=== PATIENT | male | born 1960 | race African-American/Black ===

== ENCOUNTER 2016-09-05 06:20 | Inpatient (IN) | payer OTHER ==
[~2016-09-05] VITALS: Ht 172.7 cm; Wt 100.2 kg
[2016-09-05] MEDS ORDERED: NALOXONE HCL 0.4 MG/ML AMPUL ONE ×2 (06:25→06:56)
[2016-09-05] MEDS ORDERED: NALOXONE PREFILLED SYRINGE 2 MG/2 ML SYRINGE IV ONE ×2 (06:30→07:00)
[2016-09-05] MEDS ORDERED: IV NS 0.9% 1,000 ML BAG IV ONE (06:30)
--- NOTE | 2016-09-05 06:30 | NUR ---
56 yo male bb ra from home for GLF. pt is alert x 0, pt gowned, placed on cardiac cath rn. SPO2 in the mid 70. MD Duran notified. 16g LAC iv started, blood sample obtained and sent to lab. medicated pt per verbal order MD Duran: 0.4mg Narcan IVP. pt woke up and asked for a blanket. SPO2 normalized to mid 90's. Pt now complains of right knee and right ankle pain, states he had a GLF. Will continue to monitor
[2016-09-05] MEDS ORDERED: IV NS 0.9% 1,000 ML ONE (06:32)
[2016-09-05] MEDS ORDERED: IV SET PRIMARY 1 EA INFUS.SET MC ONE (06:32)
--- NOTE | 2016-09-05 06:40 | NUR ---
Medicated pt as ordered
--- NOTE | 2016-09-05 06:48 | NUR ---
pt transported by radiology to [place] via [facility]
[2016-09-05 07:01] LABS: EOSINOPHILS # (AUTO) 0.2 /CMM (0.0-0.7); EOSINOPHILS % (AUTO) 1.4 % (0.0-6.0); HEMATOCRIT 48 % (39-51); HEMOGLOBIN 16.6 g/dL (13.5-17.5); LYMPHOCYTES # (AUTO) 1.8 /CMM (0.8-4.8); LYMPHOCYTES % (AUTO) 14.3 % (20.0-44.0); MEAN CORPUSCULAR HEMOGLOBIN 36 PG (26.0-33.0); MEAN CORPUSCULAR HGB CONC 34 g/dl (31.0-36.0); MEAN CORPUSCULAR VOLUME 105 fL (80-96); MONOCYTES # (AUTO) 1.7 /CMM (0.1-1.30); MONOCYTES % (AUTO) 13.1 % (2.0-12.0); NEUTROPHILS % (AUTO) 71.2 % (43.0-81.0); PLATELET COUNT (AUTO) 164 /CMM (150-450); RDW COEFFICIENT OF VARIATION 15.1 (11.5-15.0); RED BLOOD CELL COUNT(AUTO) 4.58 MIL/uL (4.5-6.0); WHITE BLOOD COUNT (AUTO) 12.6 K/uL (4.3-11.0)
[2016-09-05 07:03] LABS: CALCIUM, SERUM 9.1 mg/dL (8.5-10.1); POTASSIUM 4.9 mmol/L (3.5-5.1)
--- NOTE | 2016-09-05 07:04 | NUR ---
pt SPO2 dropped, admin 0.4 mg narcan as ordered by md Duran
[2016-09-05 07:07] LABS: INR 1.04 (0.87-1.13); PROTHROMBIN TIME 11.2 SECS (9.5-12.7)
[2016-09-05 07:12] LABS: TROPONIN I 0.081 ng/mL (0.00-0.056)
[2016-09-05] MEDS ORDERED: ASPIRIN 325 MG TABLET ONE (07:24)
[2016-09-05] MEDS ORDERED: ENOXAPARIN SODIUM 80 MG/0.8 ML DISP.SYRIN SQ ONE (07:24)
[2016-09-05] MEDS ORDERED: ASPIRIN EC 325 MG TABLET.DR PO ONE ×2 (07:26→07:30)
[2016-09-05] MEDS ORDERED: ENOXAPARIN SODIUM 60 MG/0.6 ML DISP.SYRIN SQ ONE (07:30)
--- NOTE | 2016-09-05 07:33 | NUR ---
PAGED DR. WEAVER FOR ADMISSION
--- NOTE | 2016-09-05 07:40 | NUR ---
RN INITIAL NOTE PATIENT RECEIVED IN BED. PATIENT IS PRIMARILY TELUGU SPEAKING, NON VERBAL, MOUTHS WORDS. ABLE TO MAKE NEEDS KNOWN. NO S/S OF PAIN OR DISCOMFORT. DENIES PAIN AT THIS TIME. PATIENT IS AFIB ON TELE MONITOR, HEART RATE IN THE 80'S. PATIENT HAS TRACH, PORTEX #8, AC-14, TV-500, [id number]%, PEEP OF 5. SATING WELL. SKIN IS WARM AND DRY TO TOUCH. PATIENT IS ON NPO STATUS BECAUSE JTUBE IS CLOGGED. IV SITE FLUSHED, PATENT. DRESSING C/D/I. SAFETY PRECAUTIONS IMPLEMENTED, BED IN LOCKED, LOW POSITION WITH TWO SIDE RAILS UP. PATIENT RECEIVING HD THIS AM. DAUGHTER AT BEDSIDE. CALL LIGHT WITHIN EASY REACH. WILL CONTINUE TO MONITOR. Addendum: 09/05/16 at 0932 by TAMMY WHALEN RN DOCUMENTED UNDER WRONG PATIENT
--- NOTE | 2016-09-05 08:31 | NUR ---
REPORT GIVEN TO TAMMY LION FOR MARYAM ROOM 111
[2016-09-05 09:00] VITALS: BP 116/64
[2016-09-05] MEDS ORDERED: MAGNESIUM HYDROXIDE 30 ML UDC PO PRN (09:00)
[2016-09-05] MEDS ORDERED: HYDROCODONE/APAP 5/325MG 1 EACH TABLET PO PRN (09:00)
[2016-09-05] MEDS ORDERED: ZOLPIDEM TARTRATE 5 MG TABLET PO PRN (09:00)
[2016-09-05] MEDS ORDERED: Z GUARD REMEDY 2 OZ OINT TP PRN (09:00)
--- NOTE | 2016-09-05 09:00 | NUR ---
RN INITIAL NOTE PATIENT RECEIVED FROM ER, TRANSFERRED VIA GURNEY. PATIENT IS ALERT AND ORIENTED X2. ABLE TO MAKE NEEDS KNOWN. PATIENT STATES HE IS IN PAIN. ON NPO STATUS. MD MADE AWARE. PATIENT IS SINUS RHYTHM ON TELE MONITOR, HEART RATE IN THE 80'S. RESPIRATIONS ARE EVEN AND UNLABORED. SATING WELL ON 3L NASAL CANULA. SKIN IS WARM AND DRY TO TOUCH. IV SITE FLUSHED, PATENT. DRESSING C/D/I. CALL LIGHT WITHIN EASY REACH. WILL CONTINUE TO MONITOR.
[2016-09-05 12:00] VITALS: BP 91/54
[2016-09-05] MEDS: ACETAMINOPHEN 325 MG TABLET PO PRN (13:04)
[2016-09-05 16:00] VITALS: BP 123/79
--- NOTE | 2016-09-05 18:54 | NUR ---
RN CLOSING NOTE ALL MD ORDERS CARRIED OUT. PATIENT KEPT CLEAN AND DRY. SAFETY PRECAUTIONS IN PLACE AT ALL TIMES. WILL GIVE REPORT TO ONCOMING PM RN FOR [place].
[2016-09-05 20:00] VITALS: BP 108/64
--- NOTE | 2016-09-05 22:00 | NUR ---
melanie rn notes spoke to dr coker regarding home meds and pain medication with order made and carried out.
[2016-09-05] MEDS ORDERED: HYDROMORPHONE HCL 2 MG TABLET ONE (22:22)
[2016-09-05] MEDS: MAG HYDROX/AL HYDROX/SIMETH 30 ML UDC PO PRN (22:23)
--- NOTE | 2016-09-05 22:23 | NUR ---
MARYAM RN NOTES: MAALOX WAS ADMINISTERED PER PT'S REQUEST OF FEELING DYSPEPSIA. WILL CONTINUE TO MONITOR PT.
[2016-09-05] MEDS: HYDROMORPHONE HCL 2 MG TABLET PO PRN (22:29)
--- NOTE | 2016-09-05 22:29 | NUR ---
MARYAM NOTES: PT COMPLAINED OF GENERALIZED 10/10 PAIN. PT WAS ADMINISTERED DILAUDID 4MG PO. WILL CONTINUE TO MONITOR PT.
[2016-09-05] MEDS ORDERED: TRAZODONE 50 MG TABLET ONE (23:26)
[2016-09-05] MEDS: TRAZODONE 50 MG TABLET PO SCH (23:32)
--- NOTE | 2016-09-05 23:32 | NUR ---
td rn notes received pts on bed awake alert and responsive , on tele sr on the monitor , no sob no distress noted c/o of generalized pain , paged for dr sheela chris concrete float maker for order , hob elevated for aspiration precaution , v/s stable afebrile ,all needs attended too call light within reach all due meds given as order , bed on locked position , safety precaution provided , kept pts comfortable in bed, on nc at 3 liters sating 92% encouraged pts not to take out the nasal canula , will continue to monitor pts.
[2016-09-06] VITALS: BP 112/73
--- NOTE | 2016-09-06 01:38 | NUR ---
MARYAM NOTES: NO REDNESS NOTED ON RIGHT ARM WHERE PEN MARKINGS WERE NOTED. WILL CONTINUE TO MONITOR THROUGHOUT SHIFT.
[2016-09-06] MEDS ORDERED: ALBUTEROL FS 2.5 MG/3 ML VIAL.NEB ONE (01:41)
[2016-09-06] MEDS ORDERED: IPRATROPIUM NEB FS 0.5 MG/2.5 ML AMPUL.NEB ONE (01:41)
[2016-09-06] MEDS: ALBUTEROL FS 2.5 MG/3 ML VIAL.NEB NEB SCH ×4 (01:48→20:04)
[2016-09-06] MEDS: IPRATROPIUM NEB FS 0.5 MG/2.5 ML AMPUL.NEB NEB SCH ×4 (01:48→20:04)
[2016-09-06 04:00] VITALS: BP 104/59
[2016-09-06] MEDS: ACETAMINOPHEN 325 MG TABLET PO PRN (05:39)
--- NOTE | 2016-09-06 05:39 | NUR ---
MARYAM RN NOTE: TYLENOL 650MG PO WAS ADMINISTERED. WILL CONTINUE TO MONITOR PT.
[2016-09-06] MEDS ORDERED: HYDROMORPHONE HCL 2 MG TABLET ONE (06:09)
[2016-09-06] MEDS: HYDROMORPHONE HCL 2 MG TABLET PO PRN ×4 (06:14→21:45)
--- NOTE | 2016-09-06 06:14 | NUR ---
MARYAM RN NOTES: PT COMPLAINED OF 10/10 GENERALIZED PAIN. PT WAS ADMINISTERED DILAUDID 4MG PO. WILL CONTINUE TO MONITOR PT.
--- NOTE | 2016-09-06 06:21 | NUR ---
MARYAM RN NOTES PTS ON BED AWAKE AND RESPONSIVE , V/S STABLE AFEBRILE , REMAINS ON NC AT 3LITERS SATING 94% ALL NEEDS ATTENDED TOO CALL LIGHT WITHIN REACH , WILL ENDORSE PTS TO RN DAY SHIFT FOR CONTINUITY OF CARE.NO SIGNIFICANT CHANGE NOTED AT TIS TIME.
--- NOTE | 2016-09-06 07:49 | NUR ---
RN MARYAM; ASSESSMENT RECEIVED PT AWAKE AND ORIENTED X4. PT STATES THAT RIGHT SIDE OF BODY IS SORE S/P FALL. PT IS CONCERN REGARDING HOME MEDICATIONS, DISCUSSED THAT MED HAVE BEEN RECONCILE AND AWAITING VERIFICATION WITH PHARMACY. PT VERBALIZES UNDERSTANDING. PT IS CONTINENT OF URINE. URINAL WITH IN REACH, CALL LIGHT WITH IN REACH, BED SET AT LOW POSITION WITH BED ALARM SET. WILL CONTINUE WITH POC.
[2016-09-06 07:52] LABS: BASOPHILS # (AUTO) 0.1 /CMM (0.0-0.2); BASOPHILS % (AUTO) 0.7 % (0.0-2.0); EOSINOPHILS # (AUTO) 0.2 /CMM (0.0-0.7); HEMATOCRIT 41 % (39-51); HEMOGLOBIN 14.2 g/dL (13.5-17.5); LYMPHOCYTES # (AUTO) 1.7 /CMM (0.8-4.8); LYMPHOCYTES % (AUTO) 21.2 % (20.0-44.0); MEAN CORPUSCULAR HEMOGLOBIN 36 PG (26.0-33.0); MEAN CORPUSCULAR HGB CONC 34 g/dl (31.0-36.0); MEAN CORPUSCULAR VOLUME 105 fL (80-96); MONOCYTES # (AUTO) 1.1 /CMM (0.1-1.30); NEUTROPHILS % (AUTO) 61.1 % (43.0-81.0); PLATELET COUNT (AUTO) 152 /CMM (150-450); RDW COEFFICIENT OF VARIATION 14.7 (11.5-15.0); RED BLOOD CELL COUNT(AUTO) 3.96 MIL/uL (4.5-6.0); WHITE BLOOD COUNT (AUTO) 8.1 K/uL (4.3-11.0)
[2016-09-06 08:00] VITALS: BP_SYST 94; BP_SYST 95; BP_DIAS 55
[2016-09-06 08:11] LABS: CALCIUM, SERUM 8.3 mg/dL (8.5-10.1); CREATININE 0.8 mg/dL (0.6-1.3); PHOSPHORUS 2.8 mg/dL (2.5-4.9); POTASSIUM 3.7 mmol/L (3.5-5.1)
[2016-09-06] MEDS ORDERED: oxyCODONE HCL SR 10MG TAB.SR.12H PO PRN (09:00)
[2016-09-06] MEDS ORDERED: BACLOFEN (10 MG) 10 MG TABLET PO SCH (09:00)
[2016-09-06] MEDS: HYDROCHLOROTHIAZIDE 25 MG TABLET PO SCH (09:00)
[2016-09-06 09:10] LABS: INR 0.95 (0.87-1.13); PROTHROMBIN TIME 10.1 SECS (9.5-12.7)
[2016-09-06] MEDS: MAG HYDROX/AL HYDROX/SIMETH 30 ML UDC PO PRN (09:18)
[2016-09-06] MEDS: ASPIRIN 81 MG TAB.CHEW PO SCH (09:20)
[2016-09-06] MEDS: CELECOXIB 100 MG CAPSULE PO SCH ×2 (09:20→18:25)
[2016-09-06] MEDS: GABAPENTIN 100 MG CAPSULE PO SCH ×2 (09:20→18:24)
[2016-09-06 12:00] VITALS: BP 104/61
[2016-09-06] MEDS ORDERED: CLON2TAB4 PO (14:22)
[2016-09-06] MEDS ORDERED: OMEP20TA20 PO (14:22)
[2016-09-06] MEDS ORDERED: TRAZ-147 PO (14:22)
[2016-09-06] MEDS ORDERED: LORA1TAB82 PO (14:22)
[2016-09-06] MEDS ORDERED: OXYC10TA72 PO (14:22)
[2016-09-06] MEDS ORDERED: DICL30AD3 PO (14:22)
[2016-09-06] MEDS ORDERED: GABA600T PO (14:22)
[2016-09-06] MEDS ORDERED: LIDO30AD10 TP (14:22)
[2016-09-06] MEDS ORDERED: ZOLP5TAB2 PO (14:22)
[2016-09-06] MEDS ORDERED: MAG30ORA PO (14:22)
[2016-09-06] MEDS ORDERED: CELE200C PO (14:22)
[2016-09-06] MEDS ORDERED: ALBU1.257 NEB (14:22)
[2016-09-06] MEDS ORDERED: BUDE10.2 INH (14:22)
[2016-09-06] MEDS ORDERED: RIVA10TA PO (14:22)
[2016-09-06] MEDS ORDERED: BUDE180A INH (14:22)
[2016-09-06] MEDS ORDERED: MOME13HF2 INH (14:22)
[2016-09-06] MEDS ORDERED: HYDR25TA4 PO (14:22)
[2016-09-06] MEDS ORDERED: IPRA12.9 INH (14:22)
[2016-09-06] MEDS ORDERED: BACL20TA PO (14:22)
[2016-09-06] MEDS ORDERED: DOCU-25 PO (14:22)
[2016-09-06 16:00] VITALS: BP 105/66
--- NOTE | 2016-09-06 16:22 | NUR ---
MANAGER HEAVY EQUIPMENT; PT C/O UNABLE TO URINATE. PT HAD SMALL AMOUNT OF URINE THIS AM BUT UNABLE TO URINATE. PT STATES THAT HE SELF CATH AT HOME AND THAT OUR CATH ARE TO LARGE AND IS REQUESTING TO BRING HIS SUPPLY FROM HOME. WILL NOTIFY DR. WEAVER.
[2016-09-06] MEDS ORDERED: ALBUTEROL FS 2.5 MG/3 ML VIAL.NEB NEB PRN (17:00)
[2016-09-06] MEDS ORDERED: ZOLPIDEM TARTRATE 5 MG TABLET PO PRN (17:00)
[2016-09-06] MEDS ORDERED: Medication Not On Formulary EA (Budesonide (Pulmicort Flexhaler) 2 PUFF) INH SCH (17:00)
[2016-09-06] MEDS ORDERED: Medication Not On Formulary EA (Budesonide/Formoterol Fumarate (Symbicort 160-4.5 Mcg In INH SCH (17:00)
[2016-09-06] MEDS ORDERED: IPRATROPIUM NEB FS 0.5 MG/2.5 ML AMPUL.NEB NEB PRN (17:00)
[2016-09-06] MEDS ORDERED: MAG HYDROX/AL HYDROX/SIMETH 30 ML UDC PO SCH (17:00)
[2016-09-06] MEDS ORDERED: LIDOCAINE 2% JEL UROJET 10 ML MM ONE (18:00)
[2016-09-06] MEDS ORDERED: Medication Not On Formulary EA (Trazodone Hcl 1 TAB) PO SCH (18:00)
--- NOTE | 2016-09-06 18:21 | NUR ---
RN MARYAM; PT WAS NOW ABLE TO URINATE. PT STATES THAT FEELS RELIEF AND NO MORE FULLNESS FEELING IN HIS BLADDER. PT REFUSES CATHETER AT THIS TIME, BUT IF NEEDED LATER AGREES FOR CATH.
[2016-09-06] MEDS: RIVAROXABAN 10 MG TABLET PO SCH (18:25)
[2016-09-06] MEDS: oxyCODONE HCL SR 10MG TAB.SR.12H PO SCH (18:26)
--- NOTE | 2016-09-06 19:20 | NUR ---
BELL NECK HAMMERER INITIAL NOTES RECEIVED PT IN NO ACUTE DISTRESS AND DRY, CLEAN, AND COMFORTABLE IN BED. PT IS A/OX3 AND ABLE TO MAKE NEEDS KNOWN. PT IS ON 3L 02 VIA NC. 02 SATURATION IS AT 99% WITH ADEQUATE CHEST RISE/FALL. PT IS ON THE TELE WITH SR. PT STATED THAT HE IS IN PAIN 10/10 IN WHICH DILAUDID WAS ADMINISTERED FOR THE PAIN. COMFORT AND SAFETY MEASURES PLACED AND ENSURED CALL LIGHT WAS AT BEDSIDE WITHIN REACH. WILL CONTINUE TO MONITOR THE PT FOR ANY CHANGES IN CONDITION.
--- NOTE | 2016-09-06 19:33 | NUR ---
ALL [facility] ONCE CLEARED FOR PT SAFETY
[2016-09-06 19:42] LABS: APPEARANCE,URINE CLEAR (CLEAR); BILIRUBIN,URINE 1+ (NEGATIVE); BLOOD, URINE NEGATIVE Ery/uL (NEGATIVE); COLOR,URINE AMBER (YELLOW); KETONES,URINE 1+ (NEGATIVE); LEUKOCYTE ESTERASE ,URINE NEGATIVE (NEGATIVE); NITRITE, URINE NEGATIVE (NEGATIVE); PROTEIN,URINE NEGATIVE (NEGATIVE); UGLUCOSE NEGATIVE (NEGATIVE)
[2016-09-06 19:50] LABS: RBC,URINE NONE SEEN /HPF (0-2); WBC,URINE 0-2 /HPF (0-3)
[2016-09-06 19:51] LABS: BACTERIA,URINE None seen /HPF (None Seen); SQUAMOUS EPITHELIAL CELL,UR Rare /HPF (None Seen)
[2016-09-06 20:00] VITALS: BP 102/62
[2016-09-06] MEDS: TRAZODONE 50 MG TABLET PO SCH (22:38)
[2016-09-06] MEDS: clonazePAM 1 MG TABLET PO PRN (22:42)
[2016-09-07] VITALS (7 sets, daily range): BP systolic 91–138; BP diastolic 53–76
[2016-09-07] MEDS: IPRATROPIUM NEB FS 0.5 MG/2.5 ML AMPUL.NEB NEB SCH ×4 (01:56→20:01)
[2016-09-07] MEDS: ALBUTEROL FS 2.5 MG/3 ML VIAL.NEB NEB SCH ×4 (01:56→20:01)
[2016-09-07] MEDS: HYDROMORPHONE HCL 2 MG TABLET PO PRN ×3 (06:22→20:08)
--- NOTE | 2016-09-07 06:41 | NUR ---
MARYAM RN CLOSING NOTES NO SIGNIFICANT CHANGES OVERNIGHT. ALL NEEDS ANTICIPATED AND MET. PATIENT DENIES SOB. ON AND OFF OXYGEN PER PATIENT PREFERENCE. C/O NOT BEING ABLE TO SLEEP WELL DUE TO ROOMMATE. PAIN MANAGED NEEDED. SKIN WARM AND DRY TO TOUCH. PER PATIENT MINIMAL URINE OUTPUT, STATED HE FEELS THE NEED TO URINATE, BUT NOTHING COMES OUT. STATES HE WILL DRINK MORE WATER AND ATTEMPT TO PEE. DOES NOT WANT TO BE CATHETERIZED AT THIS TIME, AND STATES HE WILL DISCUSS HIS CONCERNS WITH THE DOCTOR. KEPT CLEAN AND DRY. TURNED AND REPOSITIONED Q2 AND PRN. SIDE RAILS UP AND LOCKED. BED KEPT AT LOWEST POSITION. CALL LIGHT KEPT WITHIN EASY REACH. WILL ENDORSE CONTINUITY OF CARE TO AM NURSE.
--- NOTE | 2016-09-07 07:40 | NUR ---
OPERATIONS RESEARCH SCIENTIST INITIAL NOTES RECEIVED PT IN NO ACUTE DISTRESS AND DRY, CLEAN, AND COMFORTABLE IN BED. PT IS A/OX3 AND ABLE TO MAKE NEEDS KNOWN. PT IS ON 3L 02 VIA NC. 02 SATURATION IS AT 98% WITH ADEQUATE CHEST RISE/FALL. PT IS ON THE TELE WITH SR. PT STATED THAT HE IS IN PAIN 8/10 IN WHICH DILAUDID WAS ADMINISTERED FOR THE PAIN 1HR AGO. COMFORT AND SAFETY MEASURES PLACED AND ENSURED CALL LIGHT WAS AT BEDSIDE WITHIN REACH. WILL CONTINUE TO MONITOR THE PT FOR ANY CHANGES IN CONDITION.
[2016-09-07] MEDS: CELECOXIB 100 MG CAPSULE PO SCH ×2 (08:47→16:43)
[2016-09-07] MEDS: GABAPENTIN 100 MG CAPSULE PO SCH ×2 (08:47→16:42)
[2016-09-07] MEDS: PANTOPRAZOLE 40 MG TABLET.DR PO SCH (08:49)
[2016-09-07] MEDS: DOCUSATE SODIUM 100 MG CAPSULE PO SCH (08:49)
[2016-09-07] MEDS: oxyCODONE HCL SR 10MG TAB.SR.12H PO SCH ×2 (08:49→21:48)
[2016-09-07] MEDS: LORAZEPAM 1 MG TABLET PO SCH (08:49)
[2016-09-07] MEDS: ASPIRIN 81 MG TAB.CHEW PO SCH (08:49)
[2016-09-07] MEDS: HYDROCHLOROTHIAZIDE 25 MG TABLET PO SCH (08:50)
[2016-09-07] MEDS: BACLOFEN (10 MG) 10 MG TABLET PO SCH (08:50)
[2016-09-07] MEDS ORDERED: HYDROCHLOROTHIAZIDE 25 MG TABLET PO SCH (09:00)
[2016-09-07] MEDS ORDERED: CELECOXIB PO SCH (09:00)
[2016-09-07] MEDS ORDERED: RIVAROXABAN 10 MG TABLET PO SCH (09:00)
[2016-09-07] MEDS ORDERED: FLUTICASONE/SALMETEROL DISKUS IH SCH (09:00)
[2016-09-07] MEDS: LIDOCAINE 5% (PATCH) 1 EA PATCH TP SCH (09:01)
[2016-09-07] MEDS: FLUTICASONE/VILANTEROL 1 EACH BLST.W.DEV IH SCH (09:01)
--- NOTE | 2016-09-07 10:06 | NUR ---
RN NOTE PATIENT LEAVING UNIT FOR BILATERAL RIB X-RAY - FOR STATED PAIN LIDOCAINE PATCHES APPLIED TO RIGHT DAVID, HIP, ABDOMINAL AND MEDIAL BACK
--- NOTE | 2016-09-07 12:33 | NUR ---
RN NOTE IT SHOULD BE NOTED THAT THE [PATIENT CONTINUES TO COMPLAIN OF PAIN AT 9-10 ON 0-10 SCALE . PT IS OBSERVED SLEEPING WITHOUT DIFFICULTY OR GRIMACING AND NO OBVIOUS SIGNS OF PAIN. HOWEVER WHEN ASKED THE PATIENT STATES HE HAS EXTREME PAIN AND DISCOMFORT. PRN MEDICATION ADMINISTERED PER PATIENTS REQUEST
--- NOTE | 2016-09-07 13:29 | NUR ---
RN NOTE MD GUADARRAMA UPDATED ON PATIENTS CONDITION, ALSO INFORMED ABOUT PATIETN CHEWING PERSONAL NICOTINE GUM LIKE CANDY THROUGH OUT THE DAY. MD NOT ALARMED STATING HE WAS AWARE OF THIS. NURSING STAFF WILL CONTINUE TO MONITOR .
--- NOTE | 2016-09-07 14:40 | NUR ---
PATIENT COMFORTABLY RESTING ALL NEEDS ATTENDED TO, NO SOB OR DISTRESS NOTED AT THIS TIME NURSING STAFF WILL CONTINUE TO MONITOR.
--- NOTE | 2016-09-07 16:39 | NUR ---
RN NOTE PATIENT OFFERED BED BATH , PATIENT REFUSED AT THIS TIME NURSING STAFF WILL CONTINUE TO FOLLOW
[2016-09-07] MEDS: RIVAROXABAN 10 MG TABLET PO SCH (16:49)
--- NOTE | 2016-09-07 18:11 | NUR ---
RN CLOSING NOTES NO SIGNIFICANT CHANGES THROUGHOUT THE DAY . ALL NEEDS ANTICIPATED AND MET. PATIENT DENIES SOB. ON 2L OXYGEN CONTINUOUSLY DUE DECREASE IN 02 SATS. PT EXTREMELY SLEEPY THROUGHOUT THE DAY C/O NOT BEING ABLE TO SLEEP LAST NIGHT DUE TO ROOMMATE. PAIN MANAGED NEEDED. SKIN WARM AND DRY TO TOUCH. PER PATIENT MINIMAL URINE OUTPUT, HOWEVER PATIENT URINATED 600 CC DURING DAYSHIFT.HOWEVER PATIENT DISCUSSED THESE ISSUES WITH THE MD , NO CHANGES IN PLAN OF CARE. PT KEPT CLEAN AND DRY. TURNED AND REPOSITIONED Q2 AND PRN. SIDE RAILS UP AND LOCKED. BED KEPT AT LOWEST POSITION. CALL LIGHT KEPT WITHIN EASY REACH. WILL ENDORSE CONTINUITY OF CARE TONIGHT SHIFT NURSE.
--- NOTE | 2016-09-07 19:30 | NUR ---
RN OPENING NOTES RECEIVED REPORT FROM VINH LION. PATIENT ASLEEP IN BED, RESPONSIVE TO VERBAL AND TACTILE STIMULI. A/A/O X3. NO RESPIRATORY DISTRESS NOTED, BREATHING EVEN AND UNLABORED. LUNG SOUNDS CLEAR, ON O2 @ 3LPM VIA NC. ON TELE SINUS RHYTHM IN THE 70S. BOWEL SOUNDS PRESENT IN ALL QUADRANTS, USES URINAL. LEFT AC IV #16 CDI. BED LOCKED AND IN LOWEST POSITION, SIDE RAILS UP, CALL LIGHT WITHIN REACH. WILL CONTINUE TO MONITOR.
[2016-09-07] MEDS: TRAZODONE 50 MG TABLET PO SCH (21:49)
[2016-09-08] VITALS: BP 105/72
[2016-09-08] MEDS: IPRATROPIUM NEB FS 0.5 MG/2.5 ML AMPUL.NEB NEB SCH ×4 (01:03→20:12)
[2016-09-08] MEDS: ALBUTEROL FS 2.5 MG/3 ML VIAL.NEB NEB SCH ×4 (01:03→20:12)
[2016-09-08 04:00] VITALS: BP 119/78
[2016-09-08] MEDS: HYDROMORPHONE HCL 2 MG TABLET PO PRN ×2 (04:16→15:30)
[2016-09-08] MEDS: MAG HYDROX/AL HYDROX/SIMETH 30 ML UDC PO PRN (07:28)
--- NOTE | 2016-09-08 07:57 | NUR ---
MARYAM RN NOTE PATIENT IN BED .ALL NEEDS ATTENDED C\O ABDOMINAL DISCOMFORT, MAALOX GIVEN ORDERED, ON 3L NC SAT 97%, ON TELE MONITOR SR , BED IN LOWEST AND LOCKED POSITION, LT AC HL INTACT NO S\S INFECTION NOTED , PLAN OF CARE DISCUSSED WITH PATIENT , HAVING RT TX , WILL CONT TO MONITOR CLOSELY
[2016-09-08 08:00] VITALS: BP 131/89
[2016-09-08] MEDS: LIDOCAINE 5% (PATCH) 1 EA PATCH TP SCH (08:06)
[2016-09-08] MEDS: DOCUSATE SODIUM 100 MG CAPSULE PO SCH (08:12)
[2016-09-08] MEDS: CELECOXIB 100 MG CAPSULE PO SCH ×2 (08:12→16:19)
[2016-09-08] MEDS: HYDROCHLOROTHIAZIDE 25 MG TABLET PO SCH (08:13)
[2016-09-08] MEDS: BACLOFEN (10 MG) 10 MG TABLET PO SCH (08:15)
[2016-09-08] MEDS: PANTOPRAZOLE 40 MG TABLET.DR PO SCH (08:16)
[2016-09-08] MEDS: ASPIRIN 81 MG TAB.CHEW PO SCH (08:16)
[2016-09-08] MEDS: GABAPENTIN 100 MG CAPSULE PO SCH ×2 (08:16→16:22)
[2016-09-08] MEDS: FLUTICASONE/VILANTEROL 1 EACH BLST.W.DEV IH SCH (08:18)
[2016-09-08] MEDS: oxyCODONE HCL SR 10MG TAB.SR.12H PO SCH ×2 (08:23→21:14)
[2016-09-08] MEDS: LORAZEPAM 1 MG TABLET PO SCH (08:23)
--- NOTE | 2016-09-08 10:36 | NUR ---
MARYAM RN NOTE NEW HL ON LT AC LA NENA 24 AND LT FA LA NENA 22 INSERTED WITH GOOD BLOOD RETURN , ASSISTED TO BR, ABLE TO URINATE 100 ML OF YELLOW COLOR URINE, KEEP CLEAN DRY
[2016-09-08 12:00] VITALS: BP 102/62
--- NOTE | 2016-09-08 12:12 | NUR ---
MARYAM RN NOTE PER DR WEAVER SIZE WORKER NO PICC LINE PATIENT REQUESTED AND AWARE THAT EARLIER C\O ABDOMINAL DISCOMFORT ,MYLANTA PO GIVEN , PER DR WEAVER PATIENT ON XARELTO, NO NEED DVT PUMPS ALSO NOTIFIED THAT EARLIER C\O ITS HARD TO VOID, ON BLADER SCANNER SHOWS 160 ML BUT LATTER ABLE TO URINATE IN BR , VOIDED WELL
--- NOTE | 2016-09-08 14:04 | NUR ---
MARYAM RN NOTE ASSISTED TO BR, ABLE TO URINATE WELL ,NOT IN ACUTE DISTRESS ,KEEP CLEAN DRY
[2016-09-08] MEDS: ONDANSETRON HCL/PF 4 MG/2 ML VIAL IVP PRN ×2 (15:19→23:45)
--- NOTE | 2016-09-08 15:34 | NUR ---
MARYAM RN NOTE C\ PAIN IN BODY 7\10 DILAUDID 4 MG PO GIVEN ORDERED, BP 109/55 SA 98%, WILL MONITOR CLOSELY
[2016-09-08 16:00] VITALS: BP 101/58
[2016-09-08] MEDS: RIVAROXABAN 10 MG TABLET PO SCH (16:20)
--- NOTE | 2016-09-08 17:14 | NUR ---
MARYAM RN NOTE ASSISTED TO BR , ABLE TO URINATE WELL , KEEP CLEAN DRY
--- NOTE | 2016-09-08 18:19 | NUR ---
MARYAM RN NOTE ALL NEEDS ATTENDED ,HAVING DINNER , ABLE TO ETA SELF ,CALL LIGHT WITHIN REACH , NOT IN ACUTE DISTRESS .NO SOB NOTED , BED I LOWEST AND LOCKED POSITION , WILL CONT TO MONITOR CLOSELY
[2016-09-08 20:00] VITALS: BP 106/76
[2016-09-08] MEDS: TRAZODONE 50 MG TABLET PO SCH (21:14)
[2016-09-08] MEDS ORDERED: IV SET PRIMARY PUMP SET 1 EA INFUS.SET MC ONE (22:12)
--- NOTE | 2016-09-08 23:14 | NUR ---
RN:TD: PT EXTREMELY RESISTANT TO WAITING FOR ASSISTANCE DESPITE EDUCATION REGARDING FALL RISK AND PREVIOUS HX OF MULTIPLE FALL. BED ALARM PLACED ON AND CALL LIGHT IN REACH. PT INSTRUCTED TO CALL BEFORE HE NEEDS TO USE THE RESTROOM TO AVOID ANY INJURY. PT CONTINUES TO BE VERY NON-COMPLIANT. SAFETY PRECAUTIONS IN PLACE.
--- NOTE | 2016-09-08 23:55 | NUR ---
RN:TD: PT REQUESTED KLONOPIN FOR SLEEP ORDERED. AFTER OBTAINING MEDICATION FROM WILLIAM PT WAS FOUND TO BE VOMITING SCANT AMOUNT OF OLD FOOD, DUE TO EXCESSIVELY CHEWING NICORETTE GUM. PT ASKED TO STOP EATING SO MUCH GUM IT IS MAKING HIM THROW UP. WILL WAIT 30 MINUTES TO ENSURE PT DOES NOT THROW UP MEDICATION BEFORE ADMINISTERING KLONOPIN. ASPIRATION PRECAUTIONS IN PLACE. ZOFRAN GIVEN PER MD ORDERS.
[2016-09-09] VITALS: BP 115/73
--- NOTE | 2016-09-09 01:18 | NUR ---
rn:td: pt asleep, Abbi returned in the pyxis as pt never took medication due to n/v. tomás charge nurse witnessed return, medication placed in return bin with paperwork. will continue to monitor closely.
[2016-09-09] MEDS: IPRATROPIUM NEB FS 0.5 MG/2.5 ML AMPUL.NEB NEB SCH ×4 (01:30→20:06)
[2016-09-09] MEDS: ALBUTEROL FS 2.5 MG/3 ML VIAL.NEB NEB SCH ×4 (01:30→20:06)
[2016-09-09] MEDS: HYDROMORPHONE HCL 2 MG TABLET PO PRN ×2 (03:21→17:05)
--- NOTE | 2016-09-09 03:23 | NUR ---
RN:TD: PT REQUESTING TO AMBULATE TO BATHROOM BUT SPACE CONTROL SUPERVISOR UNAVAILABLE. PT GAIT TOO UNSTABLE TO ASSIST TO THE BATHROOM ALONE. OFFERED PT URINAL. WHEN ATTEMPTING TO HELP PATIENT HE BECAME DEFENSIVE AND AGGRESSIVE. WHEN TRYING TO FURTHER ASSIST PATIENT HE BEGAN USING INAPPROPRIATE LANGUAGE. PT STATING HE HAD PAIN, PT MEDICATED WITH DILAUDID PER MD ORDERS. PT CONTINUES TO BE VERY NONCOMPLIANT. ATTEMPTED TO ACCOMMODATE ALL PATIENT NEEDS. PT CONTINUES TO CONSUME LARGE AMOUNTS OF NICOTINE GUM DESPITE EDUCATION.
[2016-09-09 04:00] VITALS: BP 126/70
--- NOTE | 2016-09-09 05:53 | NUR ---
RN;TD: PT FALLING ASLEEP WHILE USING URINAL, ATTEMPTED TO OFFER ASSISTANCE BUT PATIENT DECLINED. PROVIDED PT PRIVACY, WILL REASSESS.
--- NOTE | 2016-09-09 06:05 | NUR ---
RN:TD: PT DEMANDING THAT DUST SAMPLER COME TO ASSIST PATIENT TO THE BATHROOM. ALL DUST SAMPLER UNAVAILABLE AT THIS MOMENT, PT OFFERED URINAL BUT DECLINED. PT BECOMING AGGRESSIVE AND ATTEMPTING TO GET OUT OF BED WITH UNSTEADY GAIT. PT REMAINS NONCOMPLIANT AND STATING HE IS IN TOO MUCH PAIN. DUST SAMPLER CAME TO BEDSIDE TO ASSIST PATIENT TO RESTROOM. Z-OLI APPLIED TO PATIENTS BUTTOCKS PER PT REQUEST. ATTEMPTED TO ACCOMMODATE ALL PATIENT NEEDS.
[2016-09-09 06:58] LABS: BASOPHILS % (AUTO) 0.2 % (0.0-2.0); EOSINOPHILS # (AUTO) 0.4 /CMM (0.0-0.7); EOSINOPHILS % (AUTO) 5.9 % (0.0-6.0); HEMATOCRIT 46 % (39-51); HEMOGLOBIN 15.6 g/dL (13.5-17.5); LYMPHOCYTES # (AUTO) 1.5 /CMM (0.8-4.8); LYMPHOCYTES % (AUTO) 20.4 % (20.0-44.0); MEAN CORPUSCULAR HEMOGLOBIN 36 PG (26.0-33.0); MEAN CORPUSCULAR HGB CONC 34 g/dl (31.0-36.0); MEAN CORPUSCULAR VOLUME 105 fL (80-96); MONOCYTES # (AUTO) 0.9 /CMM (0.1-1.30); MONOCYTES % (AUTO) 11.7 % (2.0-12.0); NEUTROPHILS # (AUTO) 4.6 /CMM (1.8-8.9); NEUTROPHILS % (AUTO) 61.8 % (43.0-81.0); PLATELET COUNT (AUTO) 181 /CMM (150-450); RDW COEFFICIENT OF VARIATION 14.9 (11.5-15.0); RED BLOOD CELL COUNT(AUTO) 4.33 MIL/uL (4.5-6.0); WHITE BLOOD COUNT (AUTO) 7.4 K/uL (4.3-11.0)
--- NOTE | 2016-09-09 07:00 | NUR ---
RN NOTE RECEIVED PT ON BED , A/Ox3, RESPIRATION EVEN AND UNLABORED , O2 O2 3L N/C , NO SOB NOTED ,ON TELE SR , LEFT FA IV SITE CDI, SR UP x3, BED LOCKED AND IN LOWEST POSITION , BED ALARM ON FOR PT SAFETY , ADVISED PT TO CALL PRN FOR ASSIST TO BE OUT OF BED , CONTINUE TO MONITOR PT CLOSELY AND NOTIFY MD FOR ANY SIGNIFICANT CHANGES.
[2016-09-09 07:27] LABS: CALCIUM, SERUM 9.3 mg/dL (8.5-10.1); CREATININE 0.8 mg/dL (0.6-1.3)
[2016-09-09 08:00] VITALS: BP 103/70
[2016-09-09] MEDS: PANTOPRAZOLE 40 MG TABLET.DR PO SCH (08:01)
[2016-09-09] MEDS: DOCUSATE SODIUM 100 MG CAPSULE PO SCH (08:01)
[2016-09-09] MEDS: HYDROCHLOROTHIAZIDE 25 MG TABLET PO SCH (08:01)
[2016-09-09] MEDS: ASPIRIN 81 MG TAB.CHEW PO SCH (08:02)
[2016-09-09] MEDS: LORAZEPAM 1 MG TABLET PO SCH (08:02)
[2016-09-09] MEDS: oxyCODONE HCL SR 10MG TAB.SR.12H PO SCH ×2 (08:02→21:16)
[2016-09-09] MEDS: BACLOFEN (10 MG) 10 MG TABLET PO SCH (08:02)
[2016-09-09] MEDS: GABAPENTIN 100 MG CAPSULE PO SCH ×2 (08:02→17:00)
[2016-09-09] MEDS: CELECOXIB 100 MG CAPSULE PO SCH ×2 (08:02→17:00)
[2016-09-09] MEDS: Z GUARD REMEDY 2 OZ OINT TP SCH (08:04)
[2016-09-09] MEDS: FLUTICASONE/VILANTEROL 1 EACH BLST.W.DEV IH SCH (08:05)
[2016-09-09] MEDS: LIDOCAINE 5% (PATCH) 1 EA PATCH TP SCH (08:05)
[2016-09-09] MEDS: ONDANSETRON HCL/PF 4 MG/2 ML VIAL IVP PRN ×2 (10:12→21:25)
[2016-09-09 12:00] VITALS: BP 117/83
[2016-09-09 16:00] VITALS: BP 105/72
--- NOTE | 2016-09-09 16:08 | NUR ---
RN NOTES PT C/O DISCOMFORT AND UNABLE TO EMPTY BLADDER COMPLETELY , PT VOIDED 100CC , BLADDER SCAN SHOWED 275, AND IN AND OUT CATH DONE PER DR WEAVER ORDER ,300 CC URINE OBTAINED .DR WEAVER NOTIFIED .
[2016-09-09] MEDS: RIVAROXABAN 10 MG TABLET PO SCH (17:00)
--- NOTE | 2016-09-09 18:19 | NUR ---
RN NOTES PT STABLE , DENIES ANY DISTRESS AT THIS TIME, MEDICATED PER MD ORDER , OUT OF BED TO BR WITH WALKER , NO SIGNIFICANT CHANGES NOTED ON THIS SHIFT .
--- NOTE | 2016-09-09 19:30 | NUR ---
KILN OPERATOR HELPER INITIAL NOTE: PT RECEIVED IN NO ACUTE DISTRESS. PT IS A/O X3 IN A DEMANDING MOOD WITH R SIDED WEAKNESS. PT IS SR ON TELE WITH A RATE OF 79 BPM. PT IS ABLE TO G TO THE BATHROOM WITH ASSISTANCE FROM STAFF. PT IS ON A REGULAR DIET TOLERATED. PT HAS A MCKENZIE 24 G THAT IS CLEAN DRY AND INTACT THAT WAS BOTH LUMENS WERE FLUSHED TO CHECK PATENCY. PT COMPLAINED OF PAIN 10/10 UPON ASSESSMENT BUT PAIN MEDICATION WAS NOT ABLE TO BE GIVEN UNTIL 2099. PT IS ON 2LPM OF 02 VIA NC THAT IS BEING TOLERATED WELL. NO URINE OR BM NOTED. BED IN LOW POSITION WITH RAILS UP X2. CALL LIGHT WITHIN REACH AND ALL SAFETY/COMFORT MEASURES ENSURED. WILL CONTINUE TO MONITOR THE PT FOR ANY CHANGES.
[2016-09-09 20:00] VITALS: BP 124/77
[2016-09-09] MEDS: clonazePAM 1 MG TABLET PO PRN (21:15)
[2016-09-09] MEDS: TRAZODONE 50 MG TABLET PO SCH (21:22)
[2016-09-10] VITALS: BP_SYST 124; BP_SYST 94; BP_DIAS 59; BP_DIAS 77
[2016-09-10] MEDS: ALBUTEROL FS 2.5 MG/3 ML VIAL.NEB NEB SCH ×3 (02:05→13:19)
[2016-09-10] MEDS: IPRATROPIUM NEB FS 0.5 MG/2.5 ML AMPUL.NEB NEB SCH ×3 (02:05→13:19)
[2016-09-10] MEDS: HYDROMORPHONE HCL 2 MG TABLET PO PRN ×2 (02:21→12:10)
[2016-09-10 04:00] VITALS: BP 96/47
[2016-09-10 06:51] LABS: BASOPHILS % (AUTO) 0.2 % (0.0-2.0); EOSINOPHILS # (AUTO) 0.5 /CMM (0.0-0.7); EOSINOPHILS % (AUTO) 7.9 % (0.0-6.0); HEMATOCRIT 40 % (39-51); HEMOGLOBIN 13.7 g/dL (13.5-17.5); LYMPHOCYTES # (AUTO) 1.4 /CMM (0.8-4.8); LYMPHOCYTES % (AUTO) 19.8 % (20.0-44.0); MEAN CORPUSCULAR HEMOGLOBIN 36 PG (26.0-33.0); MEAN CORPUSCULAR HGB CONC 35 g/dl (31.0-36.0); MEAN CORPUSCULAR VOLUME 105 fL (80-96); MONOCYTES # (AUTO) 0.9 /CMM (0.1-1.30); MONOCYTES % (AUTO) 13.8 % (2.0-12.0); NEUTROPHILS % (AUTO) 58.3 % (43.0-81.0); PLATELET COUNT (AUTO) 187 /CMM (150-450); RDW COEFFICIENT OF VARIATION 15.2 (11.5-15.0); RED BLOOD CELL COUNT(AUTO) 3.78 MIL/uL (4.5-6.0); WHITE BLOOD COUNT (AUTO) 6.8 K/uL (4.3-11.0)
--- NOTE | 2016-09-10 06:58 | NUR ---
AIRPLANE PILOT PHOTOGRAMMETRY CLOSING NOTE PT REMAINS IN NO ACUTE DISTRESS AT END OF SHIFT. PT DID NOT HAVE ANY SIGNIFICANT CHANGE IN CONDITION. WILL ENDORSE CARE TO AM RN FOR CONTINUITY OF CARE. ALL DUE MEDICATIONS TOLERATED WELL. PT BED IN LOW POSITION WITH X2 RAILS UP IN COMFORTABLE POSITION.
[2016-09-10 07:19] LABS: CALCIUM, SERUM 9.1 mg/dL (8.5-10.1); CREATININE 0.7 mg/dL (0.6-1.3); POTASSIUM 3.6 mmol/L (3.5-5.1)
[2016-09-10 08:00] VITALS: BP 114/69
[2016-09-10] MEDS: GABAPENTIN 100 MG CAPSULE PO SCH ×2 (09:10→17:00)
[2016-09-10] MEDS: ASPIRIN 81 MG TAB.CHEW PO SCH (09:10)
[2016-09-10] MEDS: PANTOPRAZOLE 40 MG TABLET.DR PO SCH (09:10)
[2016-09-10] MEDS: DOCUSATE SODIUM 100 MG CAPSULE PO SCH (09:10)
[2016-09-10] MEDS: CELECOXIB 100 MG CAPSULE PO SCH ×2 (09:12→17:00)
[2016-09-10] MEDS: LIDOCAINE 5% (PATCH) 1 EA PATCH TP SCH (09:13)
[2016-09-10] MEDS: BACLOFEN (10 MG) 10 MG TABLET PO SCH (09:13)
[2016-09-10] MEDS: Z GUARD REMEDY 2 OZ OINT TP SCH (09:14)
[2016-09-10] MEDS: HYDROCHLOROTHIAZIDE 25 MG TABLET PO SCH (09:15)
[2016-09-10] MEDS: oxyCODONE HCL SR 10MG TAB.SR.12H PO SCH (09:19)
[2016-09-10] MEDS: LORAZEPAM 1 MG TABLET PO SCH (09:19)
[2016-09-10] MEDS: FLUTICASONE/VILANTEROL 1 EACH BLST.W.DEV IH SCH (09:26)
[2016-09-10] MEDS: ONDANSETRON HCL/PF 4 MG/2 ML VIAL IVP PRN (09:35)
[2016-09-10 10:36] LABS: EOSINOPHILS % (MANUAL) 5 % (0-4); LYMPHOCYTES % (MANUAL) 11 % (16-48); MONOCYTES % (MANUAL) 8 % (0-11.0); NEUTROPHILS % (MANUAL) 76 (42-76)
[2016-09-10 12:00] VITALS: BP 105/66
[2016-09-10 16:00] VITALS: BP 121/70
--- NOTE | 2016-09-10 16:42 | NUR ---
PATIENT REFUSED TO HAVE PHOTO TAKEN PRIOR TO D/C ,PATIENT RIDE IS WAITING PER PATIENT.
[2016-09-10] MEDS: RIVAROXABAN 10 MG TABLET PO SCH (17:00)
--- NOTE | 2016-09-10 17:00 | NUR ---
RN NOTES PT DISCHARGED HOME WITH HOME HEALTH, TRAVEL MED SURG RN ON CASE, IN STABLE CONDITION, VANESSA IS CAREGIVER, PICKED HIM UP, ON WHEEL CHAIR AND PRIVATE CAR, BELONGINGS GIVEN TO PT, IV REMOVED, ID BAND REMOVED, EXIT CARE DONE, DISCHARGE INSTRUCTIONS PROVIDED TO PT, PT LOBO PAPERS, TEACHING DONE TO PT, VERBALIZED UNDERSTANDING.
== END 2016-09-10 17:31 | disposition home or self-care (01) | DRG 812 ==
LOC: ER 06:22 → TELE-TD 08:37 → TELE1 09-09 11:39 → MEDSG1 09-10 15:06
PROVIDERS: ADMIT Family Medicine; ATTEND Family Medicine
DX: T40.601A Poisoning by unspecified narcotics, accidental (unintentional), initial encounter (principal); J96.20 Acute and chronic respiratory failure, unspecified whether with hypoxia or hypercapnia; I21.4 Non-ST elevation (NSTEMI) myocardial infarction; W01.0XXD Fall on same level from slipping, tripping and stumbling without subsequent striking against object, subsequent encounter; I10 Essential (primary) hypertension; J44.9 Chronic obstructive pulmonary disease, unspecified; R53.2 Functional quadriplegia; Z99.81 Dependence on supplemental oxygen; Z86.718 Personal history of other venous thrombosis and embolism; G89.29 Other chronic pain; F12.90 Cannabis use, unspecified, uncomplicated; I82.409 Acute embolism and thrombosis of unspecified deep veins of unspecified lower extremity; Z79.01 Long term (current) use of anticoagulants; G92 Toxic encephalopathy; Z72.0 Tobacco use; R33.9 Retention of urine, unspecified
CPT/HCPCS: 36415; 70450-TC; 71010-TC; 71111-TC; 73560-TC; 73600-TC; 80048-TC; 80061-TC; 81000-TC; 82962-TC; 83735-TC; 84100-TC; 84443-TC; 84484-TC; 85025-TC; 85610-TC; 85730-TC; 93307-TC; 94762-TC; 94799-TC; 97001-TC; A4606; A6402; A7526; J1650; J2310; J2405; J3490; J7030; Z7610

== ENCOUNTER 2017-02-14 06:11 | Inpatient (IN) | payer OTHER ==
[~2017-02-14] VITALS: Ht 167.6 cm; Wt 89.0 kg
[2017-02-14] VITALS (7 sets, daily range): BP systolic 92–135; BP diastolic 54–68
[~2017-02-14 06:11] MED LIST: ALBU1.257 NEB; BACL20TA PO; BUDE10.2 INH; BUDE180A INH; CELE200C PO; CLON2TAB4 PO; DOCU-141 PO; GABA600T PO; HYDR25TA4 PO; HYDR4TAB4 PO; IPRA12.9 INH; LIDO30AD10 TP; LORA-259 PO; MAG30ORA PO; MOME13HF2 INH; OMEP20TA20 PO; OXYC10TA59 PO; RIVA10TA PO; TRAZ-147 PO; ZOLP5TAB2 PO
--- NOTE | 2017-02-14 06:11 | NUR ---
TO BED 2 BIB PARAMEDICS C/O WORSENING BACK PAIN AND SOB S/P SMOKING A CIGARETTES. PT AAOX4 NO ACUTE DISTRESS NOTED, RESP EVEN AND UNLABORED. PLACE PT ON CARDIAC MONITORING, CONTINUOUS POX, O2@ 3L/NC, O2 SAT 96%. PENDING ER MD NIEVES.
--- NOTE | 2017-02-14 06:14 | NUR ---
MESSI JONES AT BEDSIDE TO LIZBETH MARIE.
[2017-02-14] MEDS ORDERED: ALBUTEROL FS 2.5 MG/3 ML VIAL.NEB ONE (06:17)
[2017-02-14] MEDS ORDERED: IPRATROPIUM NEB FS 0.5 MG/2.5 ML AMPUL.NEB ONE (06:17)
--- NOTE | 2017-02-14 06:20 | NUR ---
ERMD AT BEDSIDE TO RE-EVAL PT.
--- NOTE | 2017-02-14 06:25 | NUR ---
PT MEDICATED BY RN PER ER MD ORDER.
[2017-02-14] MEDS ORDERED: IPRATROPIUM NEB FS 0.5 MG/2.5 ML AMPUL.NEB NEB ONE (06:30)
[2017-02-14] MEDS ORDERED: MORPHINE SULFATE INJ 2 MG/ML DISP.SYRIN IV ONE (06:30)
[2017-02-14] MEDS ORDERED: IV NS 0.9% 1,000 ML BAG IV ONE ×3 (06:30→11:00)
[2017-02-14] MEDS ORDERED: ALBUTEROL FS 2.5 MG/3 ML VIAL.NEB NEB ONE (06:30)
[2017-02-14 06:56] LABS: BASOPHILS % (AUTO) 0.2 % (0.0-2.0); EOSINOPHILS # (AUTO) 0.2 /CMM (0.0-0.7); EOSINOPHILS % (AUTO) 2.3 % (0.0-6.0); HEMATOCRIT 51 % (39-51); HEMOGLOBIN 17.1 g/dL (13.5-17.5); LYMPHOCYTES # (AUTO) 2.3 /CMM (0.8-4.8); LYMPHOCYTES % (AUTO) 22.5 % (20.0-44.0); MEAN CORPUSCULAR HEMOGLOBIN 31 PG (26.0-33.0); MEAN CORPUSCULAR HGB CONC 34 g/dl (31.0-36.0); MEAN CORPUSCULAR VOLUME 92 fL (80-96); MONOCYTES # (AUTO) 0.9 /CMM (0.1-1.30); MONOCYTES % (AUTO) 8.2 % (2.0-12.0); NEUTROPHILS % (AUTO) 66.8 % (43.0-81.0); PLATELET COUNT (AUTO) 402 /CMM (150-450); RDW COEFFICIENT OF VARIATION 13.6 (11.5-15.0); RED BLOOD CELL COUNT(AUTO) 5.46 MIL/uL (4.5-6.0); WHITE BLOOD COUNT (AUTO) 10.4 K/uL (4.3-11.0)
[2017-02-14 07:06] LABS: CALCIUM, SERUM 9.4 mg/dL (8.5-10.1); CREATININE 2.7 mg/dL (0.6-1.3); POTASSIUM 3.7 mmol/L (3.5-5.1)
--- NOTE | 2017-02-14 07:30 | NUR ---
Patient is resting comfortably in bed. VSS
[2017-02-14] MEDS ORDERED: methylPREDNISolone SOD SUCC 125 MG/2ML VIAL ONE (07:57)
[2017-02-14] MEDS ORDERED: AZITHROMYCIN 500 MG in IV D5W 250 ML IV ONE (08:00)
[2017-02-14] MEDS ORDERED: methylPREDNISolone SOD SUCC 125 MG/2ML VIAL IV ONE (08:00)
--- NOTE | 2017-02-14 09:14 | NUR ---
DR MORRIS AT BS FOR AN UPDATE AND RE-EVAL.
[2017-02-14 10:41] LABS: APPEARANCE,URINE Clear (CLEAR); BILIRUBIN,URINE SMALL (NEGATIVE); BLOOD, URINE Negative Ery/uL (NEGATIVE); COLOR,URINE Dark (YELLOW); KETONES,URINE Negative (NEGATIVE); LEUKOCYTE ESTERASE ,URINE Negative (NEGATIVE); NITRITE, URINE Negative (NEGATIVE); PROTEIN,URINE Negative (NEGATIVE); UGLUCOSE Negative (NEGATIVE)
--- NOTE | 2017-02-14 11:00 | NUR ---
REPORT GIVEN TO AMISHA CASTRO FOR [facility] MARYAM 105
[2017-02-14 11:01] LABS: BACTERIA,URINE Rare /HPF (None Seen); RBC,URINE 0-2 /HPF (0-2); SQUAMOUS EPITHELIAL CELL,UR Few /HPF (None Seen); WBC,URINE 0-2 /HPF (0-3)
[2017-02-14 11:02] LABS: MUCUS,URINE Few /LPF (None Seen); URINE AMORPHOUS URATE Moderate /HPF (None Seen)
[2017-02-14] MEDS ORDERED: NALOXONE PREFILLED SYRINGE 2 MG/2 ML SYRINGE ONE (11:05)
[2017-02-14] MEDS ORDERED: NALOXONE HCL 0.4 MG/ML AMPUL IV ONE (11:30)
--- NOTE | 2017-02-14 11:35 | NUR ---
MARKETING FORECASTER: got pt.from ER after report: pt.is getting 3d, last litter of IV NS, Narcan was given. Pt. is lethargic, reactive by touch/light pain, unable to get history/general assessment information, VS: HR 60-80, BP 118/54, O2 sat 92-95% on 2L N/c, unable to get wounds photos now/camera is broken, no grimacing
--- NOTE | 2017-02-14 11:36 | NUR ---
RN MARYAM: prev.note not ELECTRICAL HELPER - MARYAM/Tele
--- NOTE | 2017-02-14 12:20 | NUR ---
RN MARYAM: pt.is awake now, uncooperative, calling for nurse q5min, said: don't leave, stay with my for company, was oriented for POC, orders, Dx, Tx
[2017-02-14] MEDS ORDERED: MAG HYDROX/AL HYDROX/SIMETH 30 ML UDC PO PRN (12:30)
[2017-02-14] MEDS ORDERED: LEVOFLOXACIN 500 MG /D5W 100ML 500 MG in PREMIX 1 EA IV SCH (12:30)
[2017-02-14] MEDS ORDERED: ENOXAPARIN SODIUM 40 MG/0.4 ML DISP.SYRIN SQ SCH (12:30)
[2017-02-14] MEDS ORDERED: NALOXONE HCL 0.4 MG/ML AMPUL IV PRN (12:30)
[2017-02-14] MEDS ORDERED: LEVOFLOXACIN 500 MG /D5W 100ML 500 MG in PREMIX 1 EA IV ONE (13:00)
--- NOTE | 2017-02-14 13:10 | NUR ---
MILK BOTTLING MACHINE OPERATOR: is in room, updated with all above, VS, neuro status, wounds, ordered: NS 1L bolus now, then 75 ml/h NS IVF, wounds care consult, ordered 1;1 sitter, charge nurse notified
--- NOTE | 2017-02-14 13:30 | NUR ---
RN MARYAM: unable to complete initial assessment, pt.is confused, uncooperative
[2017-02-14] MEDS ORDERED: IV NS 0.9% 1,000 ML IV ONE (13:50)
[2017-02-14] MEDS: ALBUTEROL FS 2.5 MG/3 ML VIAL.NEB NEB SCH ×2 (13:50→19:38)
[2017-02-14] MEDS ORDERED: IV NS 0.9% 1,000 ML IV PRN (14:00)
[2017-02-14] MEDS: methylPREDNISolone SOD SUCC 125 MG/2ML VIAL IV SCH ×2 (14:03→16:46)
[2017-02-14] MEDS: GABAPENTIN 300 MG CAPSULE PO SCH ×2 (14:04→16:47)
[2017-02-14] MEDS: ENOXAPARIN SODIUM 30 MG/0.3 ML DISP.SYRIN SQ SCH (14:05)
[2017-02-14] MEDS: NICOTINE PATCH (21MG) 21 MG PATCH.TD24 TD SCH (14:14)
[2017-02-14] MEDS: BUDESONIDE RESPULE INH 0.25 MG/2 ML AMPUL.NEB NEB SCH ×2 (14:14→19:30)
[2017-02-14] MEDS: Z GUARD REMEDY 2 OZ OINT TP PRN (14:14)
--- NOTE | 2017-02-14 14:30 | NUR ---
LICENSED INSURANCE SALES AGENT: 1L NS bolus is running, pt.is awake, said: understand POC, orders, but still uncooperative, with poor concentration, banding L.elbow with IVPL, O2 sat. 92-94%
--- NOTE | 2017-02-14 16:03 | NUR ---
RN MARYAM: pt.removed [id number] and refused for monitoring, pt.friend Paulette is in room
[2017-02-14] MEDS: IV NS 0.9% 1,000 ML IV PRN (16:09)
--- NOTE | 2017-02-14 16:35 | NUR ---
RN MARYAM: pt.is needy, needs sitter/charge nurse was notified, pt.was encouraged multiple time to follow POC, unable to urinate, will place in f/c
[2017-02-14] MEDS: DOCUSATE SODIUM 100 MG CAPSULE PO SCH (16:46)
[2017-02-14] MEDS: HYDROCODONE/APAP 5/325MG 1 EACH TABLET PO PRN (16:47)
[2017-02-14] MEDS: RIVAROXABAN 10 MG TABLET PO SCH (16:48)
[2017-02-14] MEDS: IPRATROPIUM NEB FS 0.5 MG/2.5 ML AMPUL.NEB NEB SCH ×2 (18:00→19:37)
[2017-02-14] MEDS: ALBUTEROL HALF STRENGTH 1.25 MG/3 ML VIAL.NEB NEB SCH ×2 (18:00→19:30)
--- NOTE | 2017-02-14 18:15 | NUR ---
RN MARYAM: unable to insert f/c d/t resistance by 2 attempts, no prostate problem per pt.state, will scan bladder, called for bladder scanner, O2 sat. 96% now, no c/o now, no acute pain now, massage for consult was sent, pt.friend Joselyn is in room, got information re pt.current condition, VS, POC, pt.is needy/asking BRIDGE OPERATOR SLIP, nurse [id number]
--- NOTE | 2017-02-14 18:43 | NUR ---
RN MARYAM: waiting bladder scanner from nursing office
--- NOTE | 2017-02-14 19:05 | NUR ---
RN OPENING NOTES RECEIVED REPORT FROM AM RN. PATIENT IN BED, A/A/O X2-3, ABLE TO MAKE NEEDS KNOWN BUT W/ SOME CONFUSION NOTED. BREATHING EVEN & UNLABORED ON ROOM AIR. DENIES SOB OR DIFFICULTY BREATHING. ON TELE SINUS RHYTHM. LEFT AC IV #18 INTACT & PATENT W/ DRESSING CDI & IVF NS @ 75 ML/HR. C/O SOME PAIN IN THE BLADDER AREA & C/O DIFFICULTY URINATING. BLADDER SCAN TO BE DONE W/ COYLE INSERTION. SAFETY MEASURES IN PLACE W/ SIDE RAILS UP, BED LOCKED & IN LOWEST POSITION & CALL LIGHT WITHIN REACH. SITTER ALSO @ BEDSIDE. WILL CONTINUE TO MONITOR.
[2017-02-14] MEDS: clonazePAM 1 MG TABLET PO PRN (22:10)
[2017-02-14] MEDS: TRAZODONE 50 MG TABLET PO SCH (22:10)
--- NOTE | 2017-02-14 23:30 | NUR ---
RN NOTES SPOKE W/ SEMAJ FLANAGAN REGARDING PATIENT'S LOW & BP. RECEIVED ORDER FOR NS 500 BOLUS. ORDER NOTED & CARRIED OUT. WILL CONTINUE TO MONITOR FOR ANY CHANGES.
[2017-02-15] VITALS: BP 96/52
[2017-02-15] MEDS ORDERED: IV NS 0.9% 500 ML IV ONE
[2017-02-15] MEDS: ACETAMINOPHEN 325 MG TABLET PO PRN (00:10)
[2017-02-15] MEDS: ALBUTEROL HALF STRENGTH 1.25 MG/3 ML VIAL.NEB NEB SCH ×2 (01:15→07:24)
[2017-02-15] MEDS: IPRATROPIUM NEB FS 0.5 MG/2.5 ML AMPUL.NEB NEB SCH ×4 (01:15→19:10)
[2017-02-15 04:00] VITALS: BP 101/58
[2017-02-15] MEDS: IV NS 0.9% 1,000 ML IV PRN (04:10)
[2017-02-15 06:32] LABS: BASOPHILS % (AUTO) 0.2 % (0.0-2.0); HEMATOCRIT 40 % (39-51); HEMOGLOBIN 13.6 g/dL (13.5-17.5); LYMPHOCYTES # (AUTO) 0.9 /CMM (0.8-4.8); LYMPHOCYTES % (AUTO) 10.1 % (20.0-44.0); MEAN CORPUSCULAR HEMOGLOBIN 32 PG (26.0-33.0); MEAN CORPUSCULAR HGB CONC 34 g/dl (31.0-36.0); MEAN CORPUSCULAR VOLUME 93 fL (80-96); MONOCYTES # (AUTO) 0.2 /CMM (0.1-1.30); MONOCYTES % (AUTO) 2.5 % (2.0-12.0); NEUTROPHILS # (AUTO) 7.9 /CMM (1.8-8.9); NEUTROPHILS % (AUTO) 87.2 % (43.0-81.0); PLATELET COUNT (AUTO) 354 /CMM (150-450); RDW COEFFICIENT OF VARIATION 13.6 (11.5-15.0)
[2017-02-15 06:49] LABS: CALCIUM, SERUM 8.3 mg/dL (8.5-10.1); CREATININE 1.2 mg/dL (0.6-1.3); MAGNESIUM 1.6 mg/dL (1.8-2.4); PHOSPHORUS 3.2 mg/dL (2.5-4.9); POTASSIUM 3.6 mmol/L (3.5-5.1)
--- NOTE | 2017-02-15 07:25 | NUR ---
RN NOTES RECIEVED PT FROM SERVICE CENTER ASSISTANT IN STABLE CONDITION, A&0X2 WITH PERIODS OF CONFUSION. ON 2L NC SATING WELL NO SOB OR DISTRESS NOTED. SR ON THE TELE MONITOR HR 78. COYLE DRAINING TO GRAVITY, YELLOW IN COLOR. LAC 18G IV SITE INTACT WITH IVF AT 75ML/HR. SITTER AT BEDSIDE. BED LOCKED AND IN LOWEST POSITION, CALL LIGHT WITHIN REACH, SIDE RAILS UPX3, WILL CONT TO ELI.
[2017-02-15] MEDS: BUDESONIDE RESPULE INH 0.25 MG/2 ML AMPUL.NEB NEB SCH ×2 (07:32→19:24)
[2017-02-15] MEDS: ALBUTEROL FS 2.5 MG/3 ML VIAL.NEB NEB SCH ×3 (07:33→19:10)
[2017-02-15 08:00] VITALS: BP 98/42
[2017-02-15] MEDS: LIDOCAINE 5% (PATCH) 1 EA PATCH TP SCH (08:30)
[2017-02-15] MEDS: NICOTINE PATCH (21MG) 21 MG PATCH.TD24 TD SCH (08:30)
[2017-02-15] MEDS: methylPREDNISolone SOD SUCC 125 MG/2ML VIAL IV SCH (08:31)
[2017-02-15] MEDS: DOCUSATE SODIUM 100 MG CAPSULE PO SCH ×2 (08:31→16:23)
[2017-02-15] MEDS: GABAPENTIN 300 MG CAPSULE PO SCH ×2 (08:31→16:23)
[2017-02-15] MEDS: ENOXAPARIN SODIUM 30 MG/0.3 ML DISP.SYRIN SQ SCH (08:32)
[2017-02-15] MEDS ORDERED: LIDOCAINE 5% (PATCH) 1 EA PATCH TP SCH (09:00)
[2017-02-15] MEDS: Magnesium 1GM/D5W 100ML PREMIX 100 ML IV SCH ×2 (10:34→12:02)
[2017-02-15 12:00] VITALS: BP 118/68
[2017-02-15] MEDS ORDERED: LEVOFLOXACIN 250 MG /D5W 50 ML 250 MG in PREMIX 1 EA IV SCH (13:00)
[2017-02-15 16:00] VITALS: BP 112/64
[2017-02-15] MEDS: RIVAROXABAN 10 MG TABLET PO SCH (16:23)
[2017-02-15] MEDS: FLUTICASONE PROPIONATE 16 GM BOTTLE NS PRN (17:47)
--- NOTE | 2017-02-15 18:28 | NUR ---
RN NOTES PT REMAINED IN STABLE CONDITION, NO SIGNIFICANT CHANGES NOTED. ALL NEEDS MET, NO COMPLAINTS OF PAIN. SITTER AT BEDSIDE. WILL ENDORSE TO ONCOMING SHIFT.
--- NOTE | 2017-02-15 19:05 | NUR ---
RN OPENING NOTES RECEIVED REPORT FROM MOOKIE LION. PATIENT IN BED, A/A/O X2-3, ABLE TO MAKE NEEDS KNOWN BUT W/ SOME CONFUSION NOTED. BREATHING EVEN & UNLABORED ON O2 3L VIA NC. DENIES SOB OR DIFFICULTY BREATHING. ON TELE SINUS RHYTHM-SINUS TACH IN THE 100S. LEFT AC IV #18 INTACT & PATENT W/ DRESSING CDI & IVF NS @ 75 ML/HR. DENIES ANY PAIN OR DISCOMFORT @ THIS TIME. SAFETY MEASURES IN PLACE W/ SIDE RAILS UP, BED LOCKED & IN LOWEST POSITION & CALL LIGHT WITHIN REACH. SITTER ALSO @ BEDSIDE. WILL CONTINUE TO MONITOR.
[2017-02-15 20:00] VITALS: BP 105/63
[2017-02-15] MEDS: clonazePAM 1 MG TABLET PO PRN (21:06)
[2017-02-15] MEDS: TRAZODONE 50 MG TABLET PO SCH (21:06)
[2017-02-15] MEDS ORDERED: VENLAFAXINE 37.5 MG TABLET ONE (21:12)
[2017-02-15] MEDS ORDERED: VENLAFAXINE XR 37.5 MG CAP.SR.24H ONE (21:20)
[2017-02-15] MEDS ORDERED: VENLAFAXINE XR 37.5 MG CAP.SR.24H PO SCH (22:00)
[2017-02-15] MEDS: HYDROCODONE/APAP 5/325MG 1 EACH TABLET PO PRN (22:09)
[2017-02-16] VITALS: BP 102/81
[2017-02-16] MEDS: IV NS 0.9% 1,000 ML IV PRN ×3 (01:46→20:55)
[2017-02-16] MEDS: IPRATROPIUM NEB FS 0.5 MG/2.5 ML AMPUL.NEB NEB SCH ×4 (02:15→19:15)
[2017-02-16 04:00] VITALS: BP 103/66
[2017-02-16] MEDS: ACETAMINOPHEN 325 MG TABLET PO PRN (06:34)
[2017-02-16] MEDS: ALBUTEROL FS 2.5 MG/3 ML VIAL.NEB NEB SCH ×3 (07:04→19:16)
[2017-02-16] MEDS: BUDESONIDE RESPULE INH 0.25 MG/2 ML AMPUL.NEB NEB SCH ×2 (07:20→19:16)
[2017-02-16 07:37] LABS: INR 0.97 (0.87-1.13); PROTHROMBIN TIME 10.1 SECS (9.5-12.7)
[2017-02-16 07:46] LABS: ALBUMIN 2.4 g/dL (3.4-5.0); BILIRUBIN,TOTAL 0.5 mg/dL (0.2-1.0); CALCIUM, SERUM 8.9 mg/dL (8.5-10.1); CREATININE 0.9 mg/dL (0.6-1.3); POTASSIUM 3.8 mmol/L (3.5-5.1); TOTAL PROTEIN, SERUM 6.7 g/dL (6.4-8.2)
[2017-02-16 07:50] LABS: THYROID STIMULATING HORMONE 2.072 uIU/mL (0.358-3.74)
[2017-02-16 07:52] LABS: OSMOLALITY,URINE 297 mOS/kg (340-1090)
[2017-02-16 08:02] VITALS: BP 104/58
[2017-02-16 08:10] LABS: URINE SODIUM, RANDOM 26 mmol/l (40-220)
[2017-02-16] MEDS: GABAPENTIN 300 MG CAPSULE PO SCH ×2 (08:30→16:10)
[2017-02-16] MEDS: DOCUSATE SODIUM 100 MG CAPSULE PO SCH ×2 (08:30→16:10)
[2017-02-16] MEDS: LIDOCAINE 5% (PATCH) 1 EA PATCH TP SCH (08:32)
[2017-02-16] MEDS: NICOTINE PATCH (21MG) 21 MG PATCH.TD24 TD SCH (08:32)
[2017-02-16] MEDS: ENOXAPARIN SODIUM 30 MG/0.3 ML DISP.SYRIN SQ SCH (08:51)
[2017-02-16] MEDS ORDERED: predniSONE 20 MG TABLET PO SCH (09:00)
--- NOTE | 2017-02-16 09:02 | NUR ---
NECK SKEWER OPENING RECEIVED PATIENT A/OX2-3. PATIENT STATES CONSTANT PAIN AND REQUESTING DILAUDID. PER DR SAMUELS LIMIT/HOLD OPOID USE; WILL F/U WITH NORCO OR OTHER PAIN MEDICATIONS AT THIS TIME. PATIENT REQUESTING NEURONTIN FOR PAIN AT THIS TIME AND STATED WILL GIVE ONCE DUE. PATIENT TELE NSR 90'S AT THIS TIME. ON 2LPM NC SATTING 91-92% AT THIS TIME. ALL NEEDS IN REACH, SITTER AT SIDE. PATIENT REPOSITIONED DUE TO UNABLE TO REPOSITION SELF IN BED. NEEDS IN REACH, BED LOWERED AND LOCKED, RAILS UPX3 FOR SAFETY BED ALARM ON AND WILL ROUND Q2H OR LESS PER NEEDS
[2017-02-16 12:00] VITALS: BP 102/61
[2017-02-16] MEDS: FLUTICASONE PROPIONATE 16 GM BOTTLE NS PRN (12:21)
[2017-02-16] MEDS: HYDROCODONE/APAP 5/325MG 1 EACH TABLET PO PRN (12:22)
--- NOTE | 2017-02-16 12:25 | NUR ---
ASSOCIATE DIRECTOR OF BIOSTATISTICS NOTES PER DR ARVIND DE LEÓN TO TRANSFER PATIENT TO MED SURG. ORDER BOOST STRAWBERRY BID. AND CHANGE CLONOPIN TO 1MG PRN BID.
[2017-02-16] MEDS ORDERED: MECL-102 PO (13:18)
[2017-02-16] MEDS ORDERED: PROP80CA PO (13:18)
[2017-02-16] MEDS ORDERED: TAMS0.4C34 PO (13:18)
[2017-02-16] MEDS ORDERED: LISI20TA PO (13:18)
[2017-02-16] MEDS ORDERED: FOLI1TAB16 PO (13:18)
--- NOTE | 2017-02-16 13:19 | NUR ---
MS RN NOTES NOTIFIED MD SAMUELS OF UPDATED MED RECON.
--- NOTE | 2017-02-16 13:21 | NUR ---
MS RN NOTES PER MD SAMUELS RESUME FLOMAX 0.4MG PO HS. GIVE DOSE NOW AND AGAIN TONIGHT HS 02/16 AND REMOVE COYLE CATH
[2017-02-16] MEDS: LEVOFLOXACIN (500MG) 500 MG TABLET PO SCH (13:35)
[2017-02-16] MEDS: TAMSULOSIN 0.4 MG CAP.SR.24H PO SCH ×2 (13:35→21:42)
[2017-02-16 16:00] VITALS: BP 102/62
[2017-02-16] MEDS: clonazePAM 1 MG TABLET PO PRN (16:10)
[2017-02-16] MEDS: RIVAROXABAN 10 MG TABLET PO SCH (16:15)
[2017-02-16] MEDS ORDERED: LACTOSE-FREE FOOD 237 ML LIQUID PO SCH (17:00)
[2017-02-16] MEDS: BOOST PLUS FOOD-CHOCLATE 237 ML BOX PO SCH (17:00)
--- NOTE | 2017-02-16 19:20 | NUR ---
MS RN CLOSING PATIENT STABLE NO COMPLICATIONS NOTED. ALL DUE MEDS GIVEN AND ALL NEEDS MET. PATIENT BED LOWERED AND LOCKED, RAILS UPX3 FOR SAFETY, ALL NEEDS IN REACH. SITTER AT SIDE. CARE ENDORSED TO RN FOR [place]
--- NOTE | 2017-02-16 19:33 | NUR ---
MS RN NOTES STILL HAVE YET TO RECEIVE BOOST FROM NUTRITION. MESSAGE LEFT
[2017-02-16 19:56] LABS: URINE SODIUM, RANDOM 9 mmol/l (40-220)
[2017-02-16 20:00] VITALS: BP 103/56
[2017-02-16 20:51] LABS: OSMOLALITY,URINE 198 mOS/kg (340-1090)
[2017-02-16] MEDS: TRAZODONE 50 MG TABLET PO SCH (21:42)
[2017-02-16] MEDS ORDERED: VENLAFAXINE XR 37.5 MG CAP.SR.24H PO SCH (22:00)
[2017-02-17] MEDS: IPRATROPIUM NEB FS 0.5 MG/2.5 ML AMPUL.NEB NEB SCH ×4 (01:30→19:58)
[2017-02-17 04:00] VITALS: BP 87/55
[2017-02-17 06:34] LABS: BASOPHILS % (AUTO) 0.2 % (0.0-2.0); HEMATOCRIT 42 % (39-51); HEMOGLOBIN 14.1 g/dL (13.5-17.5); LYMPHOCYTES # (AUTO) 1.6 /CMM (0.8-4.8); LYMPHOCYTES % (AUTO) 13.1 % (20.0-44.0); MEAN CORPUSCULAR HEMOGLOBIN 32 PG (26.0-33.0); MEAN CORPUSCULAR HGB CONC 34 g/dl (31.0-36.0); MEAN CORPUSCULAR VOLUME 94 fL (80-96); MONOCYTES % (AUTO) 8.1 % (2.0-12.0); NEUTROPHILS # (AUTO) 9.4 /CMM (1.8-8.9); NEUTROPHILS % (AUTO) 78.6 % (43.0-81.0); PLATELET COUNT (AUTO) 316 /CMM (150-450); RDW COEFFICIENT OF VARIATION 14.1 (11.5-15.0); RED BLOOD CELL COUNT(AUTO) 4.46 MIL/uL (4.5-6.0)
[2017-02-17 06:40] LABS: CALCIUM, SERUM 8.8 mg/dL (8.5-10.1); CREATININE 0.6 mg/dL (0.6-1.3); MAGNESIUM 1.8 mg/dL (1.8-2.4); POTASSIUM 3.8 mmol/L (3.5-5.1)
--- NOTE | 2017-02-17 07:18 | NUR ---
MS RN OPENING RECEIVED PATIENT AWAKE A/OX2-3 PATIENT STATES PAIN MORE CONTROLLED TODAY. COYLE CATH REMOVED JERROD CARE COMPLETED. PATIENT REPOSITIONED FOR COMFORT. URINAL GIVEN TO PATIENT AND WILL NOTIFY WHEN PATIENT URINATES. PATIENT APPEARS STABLE AT THIS TIME. NO SOB, DIFFICULTY BREATHING. BED LOWERED AND LOCKED, RAILS UPX3 FOR SAFETY AND BED ALARM ON. SITTER AT SIDE. WILL ROUND Q2H OR LESS PER NEEDS.
[2017-02-17 08:00] VITALS: BP 116/79
[2017-02-17] MEDS: LIDOCAINE 5% (PATCH) 1 EA PATCH TP SCH (08:21)
[2017-02-17] MEDS: predniSONE 20 MG TABLET PO SCH (08:21)
[2017-02-17] MEDS: NICOTINE PATCH (21MG) 21 MG PATCH.TD24 TD SCH (08:21)
[2017-02-17] MEDS: DOCUSATE SODIUM 100 MG CAPSULE PO SCH ×2 (08:21→16:35)
[2017-02-17] MEDS: GABAPENTIN 300 MG CAPSULE PO SCH ×2 (08:21→16:35)
[2017-02-17] MEDS: HYDROCODONE/APAP 5/325MG 1 EACH TABLET PO PRN ×2 (08:22→20:09)
[2017-02-17] MEDS: FLUTICASONE PROPIONATE 16 GM BOTTLE NS PRN (08:23)
[2017-02-17] MEDS: Z GUARD REMEDY 2 OZ OINT TP PRN ×2 (08:23→16:35)
--- NOTE | 2017-02-17 08:23 | NUR ---
WOUND CARE CONSULT: PT PRESENTS WITH SACRAL DEEP TISSUE INJURY IN EVOLUTION AND RT ELBOW UNSTAGEABLE ULCER, PRESENT ON ADMISSION. PT HAS CURRENT KIERSTEN SCORE OF 11. ALL SKIN PROTECTION AND WOUND RECOMMENDATIONS DISCUSSED WITH NURSING STAFF. RECOMMEND SURGICAL CONSULT. FIRST STEP MATTRESS ORDERED. WILL SEE PRN. JONES IN AGREEMENT WITH PLAN OF CARE. Addendum: 02/17/17 at 0825 by TRUMAN TREVINO WNDNU Amended: Links added.
[2017-02-17] MEDS ORDERED: HYDROGEL DRESSING 90 GM TUBE TP PRN (08:30)
[2017-02-17] MEDS: BUDESONIDE RESPULE INH 0.25 MG/2 ML AMPUL.NEB NEB SCH ×2 (08:33→20:01)
[2017-02-17] MEDS: ALBUTEROL FS 2.5 MG/3 ML VIAL.NEB NEB SCH ×3 (08:39→19:58)
[2017-02-17] MEDS: ENOXAPARIN SODIUM 30 MG/0.3 ML DISP.SYRIN SQ SCH (08:46)
[2017-02-17] MEDS: BOOST PLUS FOOD-CHOCLATE 237 ML BOX PO SCH ×2 (08:47→16:18)
[2017-02-17] MEDS: HYDROGEL DRESSING 90 GM TUBE TP SCH (08:47)
--- NOTE | 2017-02-17 09:19 | NUR ---
MS RN NOTES EVEN WHEN PATIENT REPOSITIONED HE WILL MOVE TO SACRUM AND LEAN ON RIGHT ARM. MORE PILLOWS APPLIED TO HELP PREVENT LEAVING ON RIGHT ELBOW. EDUCATED PATIENT AGAIN ON SKIN CARE AND IMPORTANCE OF OFFLOADING
--- NOTE | 2017-02-17 09:35 | NUR ---
MS RN NOTES NOTIFIED DR SAMUELS OF [facility] RECOMMENDATIONS OF DR IQBAL CONSULT FOR SACRUM AND RIGHT ELBOW. PER MD DE LEÓN FOR CONSULTATION. CALLED DR IQBAL OFFICE AND NOTIFIED OF CONSULT
[2017-02-17] MEDS: LEVOFLOXACIN (500MG) 500 MG TABLET PO SCH (11:58)
[2017-02-17] MEDS: IV NS 0.9% 1,000 ML IV PRN (12:54)
--- NOTE | 2017-02-17 14:00 | NUR ---
MS RN NOTES BLADDER SCANNED PATIENT; ABOUT 200 ML IN BLADDER. PATIENT STATES HE FEELS THE URGE TO URINATE AND WILL TRY. PATIENT CONTINUES TO ASK FOR COYLE CATH INSERTION. EDUCATED ABOUT NECESSITY AND USAGE FOR COYLE.
--- NOTE | 2017-02-17 14:23 | NUR ---
MS RN NOTES PATIENT CONTINUES TO MOVE SUPINE AND LEAN ON RIGHT ELBOW AFTER EACH REPOSITIONING. EDUCATING ON SKIN PROTECTION AND ULCER PREVENTION.
--- NOTE | 2017-02-17 15:39 | NUR ---
MS RN NOTES PATIENT URINATED IN URINAL NO COMPLICATIONS NOTED.
[2017-02-17 16:00] VITALS: BP 102/59
[2017-02-17] MEDS: DULOXETINE HCL 30 MG CAPSULE.DR PO SCH (16:35)
[2017-02-17] MEDS: RIVAROXABAN 10 MG TABLET PO SCH (16:38)
[2017-02-17] MEDS: clonazePAM 1 MG TABLET PO PRN (17:34)
--- NOTE | 2017-02-17 18:31 | NUR ---
MS RN NOTES PATIENT STABLE NO COMPLICATIONS NOTED. PATIENT URINATING TODAY. WILL BLADDER SCAN AGAIN TO CHECK. PATIENT NEEDS IN REACH, SITTER AT SIDE. BED LOWERED AND LOCKED, RAILS UPX3 FOR SAFETY WITH BED ALARM ON. ALL DUE MEDS GIVEN AND ALL NEEDS MET. CARE WILL BE ENDORSED TO RN FOR N[place]ON
--- NOTE | 2017-02-17 19:05 | NUR ---
MS RN NOTES NOTIFIED MD PATIENT HAVING TROUBLE URINATING. BLADDER SCANNED PATIENT AND ABOUT 400ML IN. PATIENT ONLY URINATED ONCE TODAY. USUAL OUTPUT HAS BEEN ABOUT 1200 OR MORE. PER MD INSERT COYLE CATH AGAIN
--- NOTE | 2017-02-17 19:43 | NUR ---
RN OPENING NOTE RECEIVED PATIENT IN THE BED, SITTER IS BY BEDSIDE, NO ACUTE DISTRESS, ALERT/ORIENTED X 3, NO SOB NOTED, LEFT AC GAUGE 17 INTACT, NO S/S OF INFECTION NOTED, SIDE RAILS UP X 2, CALL LIGHT WITHIN REACH, BED IN THE LOW POSITION, WILL CONTINUE TO MONITOR
[2017-02-17 20:00] VITALS: BP 143/66
[2017-02-17] MEDS: TRAZODONE 50 MG TABLET PO SCH (22:24)
[2017-02-17] MEDS: TAMSULOSIN 0.4 MG CAP.SR.24H PO SCH (22:24)
[2017-02-18] MEDS: IPRATROPIUM NEB FS 0.5 MG/2.5 ML AMPUL.NEB NEB SCH ×4 (01:13→19:58)
--- NOTE | 2017-02-18 01:14 | NUR ---
PT REFUSED RESP TX AT THIS TIME. NURSE AT BEDSIDE. NO S/S OF SOB NOTED Addendum: 02/18/17 at 0114 by KOSTA JALLOH RT Amended: Links added.
[2017-02-18] MEDS: ALBUTEROL FS 2.5 MG/3 ML VIAL.NEB NEB PRN (02:54)
[2017-02-18 04:00] VITALS: BP 161/87
[2017-02-18] MEDS: IV NS 0.9% 1,000 ML IV PRN ×2 (04:06→20:49)
[2017-02-18 05:52] LABS: BASOPHILS % (AUTO) 0.3 % (0.0-2.0); EOSINOPHILS % (AUTO) 0.1 % (0.0-6.0); HEMATOCRIT 41 % (39-51); HEMOGLOBIN 13.7 g/dL (13.5-17.5); LYMPHOCYTES # (AUTO) 1.6 /CMM (0.8-4.8); LYMPHOCYTES % (AUTO) 15.4 % (20.0-44.0); MEAN CORPUSCULAR HEMOGLOBIN 31 PG (26.0-33.0); MEAN CORPUSCULAR HGB CONC 34 g/dl (31.0-36.0); MEAN CORPUSCULAR VOLUME 94 fL (80-96); MONOCYTES # (AUTO) 0.8 /CMM (0.1-1.30); MONOCYTES % (AUTO) 7.5 % (2.0-12.0); NEUTROPHILS # (AUTO) 7.8 /CMM (1.8-8.9); NEUTROPHILS % (AUTO) 76.7 % (43.0-81.0); PLATELET COUNT (AUTO) 305 /CMM (150-450); RDW COEFFICIENT OF VARIATION 13.8 (11.5-15.0); RED BLOOD CELL COUNT(AUTO) 4.37 MIL/uL (4.5-6.0); WHITE BLOOD COUNT (AUTO) 10.2 K/uL (4.3-11.0)
[2017-02-18 06:11] LABS: CALCIUM, SERUM 8.6 mg/dL (8.5-10.1); CREATININE 0.6 mg/dL (0.6-1.3); MAGNESIUM 1.7 mg/dL (1.8-2.4); PHOSPHORUS 2.8 mg/dL (2.5-4.9); POTASSIUM 4.1 mmol/L (3.5-5.1)
[2017-02-18] MEDS: HYDROCODONE/APAP 5/325MG 1 EACH TABLET PO PRN ×3 (06:29→20:38)
--- NOTE | 2017-02-18 06:30 | NUR ---
RN NOTE PATIENT IS ALERT ORIENTED X 3, PATIENT AGREED TO PROCEDURE WOUND DEBRIDEMENT, BLOOD TRANSFUSION, ANESTHESIA BUT WAS UNABLE PHYSICALLY SIGN, CHARGE NURSE WITNESSED CONSENTS
--- NOTE | 2017-02-18 06:36 | NUR ---
RN NOTE NO BM NOTED DURING SHIFT, PATIENT REFUSED MILK OF MAGNESIA, REQUESTED MILK OF MAGNESIA LATER AFTER THE BREAKFAST, WILL ENDORSE TO AM NURSE
--- NOTE | 2017-02-18 07:30 | NUR ---
MS RN OPENING RECEIVED PATIENT AWAKE A/OX2-3 PATIENT STATES PAIN MORE CONTROLLED TODAY BUT HE IS SLEEPY AND WANTS TO REST. COYLE CATH IN PLACE DRAINING WELL. PATIENT REPOSITIONED FOR COMFORT. PATIENT APPEARS STABLE AT THIS TIME. NO SOB, DIFFICULTY BREATHING. BED LOWERED AND LOCKED, RAILS UPX3 FOR SAFETY AND BED ALARM ON. SITTER AT SIDE. WILL ROUND Q2H OR LESS PER NEEDS.
[2017-02-18 08:00] VITALS: BP 129/51
[2017-02-18] MEDS: BUDESONIDE RESPULE INH 0.25 MG/2 ML AMPUL.NEB NEB SCH ×2 (08:02→20:00)
[2017-02-18] MEDS: ALBUTEROL FS 2.5 MG/3 ML VIAL.NEB NEB SCH ×3 (08:02→19:57)
[2017-02-18] MEDS: BOOST PLUS FOOD-CHOCLATE 237 ML BOX PO SCH ×2 (09:21→16:20)
[2017-02-18] MEDS: Z GUARD REMEDY 2 OZ OINT TP PRN (09:22)
[2017-02-18] MEDS: HYDROGEL DRESSING 90 GM TUBE TP SCH (09:22)
[2017-02-18] MEDS: GABAPENTIN 300 MG CAPSULE PO SCH ×2 (09:32→16:17)
[2017-02-18] MEDS: NICOTINE PATCH (21MG) 21 MG PATCH.TD24 TD SCH (09:32)
[2017-02-18] MEDS: DOCUSATE SODIUM 100 MG CAPSULE PO SCH ×2 (09:32→16:17)
[2017-02-18] MEDS: predniSONE 20 MG TABLET PO SCH (09:32)
[2017-02-18] MEDS: DULOXETINE HCL 30 MG CAPSULE.DR PO SCH ×2 (09:32→16:17)
[2017-02-18] MEDS: LIDOCAINE 5% (PATCH) 1 EA PATCH TP SCH (09:32)
[2017-02-18] MEDS: ENOXAPARIN SODIUM 30 MG/0.3 ML DISP.SYRIN SQ SCH (09:39)
--- NOTE | 2017-02-18 10:30 | NUR ---
MS RN NOTES PATIENT URINE OBINNA. ONLY DRINKING SODA PROVIDED BY CAREGIVERS. EDUCATED PATIENT ON DRINKING WATER. STATES HE WILL TRY
--- NOTE | 2017-02-18 11:30 | NUR ---
MS RN NOTES PATIENT CONTINUES TO REPOSITION SELF ON SACRUM AND LEANING TOWARD RIGHT SIDE EVEN WHEN REPOSITIONED TO OFFLOAD. MULTIPLE REPOSITIONINGS COMPLETED EVER HOUR OR SO TO ASSIST WITH OFFLOADING. PATIENT CONTINUED TO BE EDUCATED ON SKIN CARE AND WOUND PREVENTION. STATES UNDERSTANDING
[2017-02-18] MEDS: LEVOFLOXACIN (500MG) 500 MG TABLET PO SCH (12:29)
[2017-02-18] MEDS: Magnesium 1GM/D5W 100ML PREMIX 100 ML IV SCH ×2 (12:29→13:32)
--- NOTE | 2017-02-18 14:15 | NUR ---
MS RN NOTES PATIENT CONTINUING TO TURN TO SACRUM AND LEAN ON RIGHT. CONTINUING TO USE PILLOWS FOR OFFLOADING AND TURNING. EDUCATED PATIENT AGAIN ON SKIN CARE
[2017-02-18] MEDS: clonazePAM 1 MG TABLET PO PRN (14:50)
[2017-02-18] MEDS ORDERED: SILVER NITRATE APPLICATOR 1 EA BOX TP ONE (15:00)
[2017-02-18] MEDS ORDERED: LIDOCAINE 2%-EPI 1:100,000 30 ML VIAL TP ONE (15:00)
--- NOTE | 2017-02-18 15:00 | NUR ---
MS RN NOTES ISHAN AT BEDSIDE. DEBRIDED RIGHT ELBOW AND SACRUM
[2017-02-18 16:00] VITALS: BP 112/61
[2017-02-18] MEDS: RIVAROXABAN 10 MG TABLET PO SCH (16:20)
[2017-02-18] MEDS: MAGNESIUM HYDROXIDE 30 ML UDC PO PRN (16:25)
--- NOTE | 2017-02-18 16:38 | NUR ---
MS RN NOTES PER KLEVER OK TO GIVE MOM NOW.
[2017-02-18] MEDS: MECLIZINE HCL 12.5 MG TABLET PO PRN (17:38)
--- NOTE | 2017-02-18 18:40 | NUR ---
MS RN CLOSING PATIENT STABLE NO COMPLICATIONS NOTED. ALL DUE MEDS GIVEN AND ALL NEEDS MET. PATIENT BED LOWERED AND LOCKED, RAILS UPX3 FOR SAFETY, ALL NEEDS IN REACH. SITTER AT SIDE. REMINDED PATIENT AGAIN OF NOT REPOSITIONING SELF TO SACRUM AND RIGHT ELBOW CARE ENDORSED TO RN FOR [place]
--- NOTE | 2017-02-18 18:48 | NUR ---
MS RN NOTES DR SANTIAGO DID SURGERY ON PATIENT ABOUT 1 MONTH AGO ON BACK SOME CEMENT PROCEDURE AND PER CAREGIVER HAS NOT BEEN ABLE TO WALK OR MOVE SINCE THEN. HE IS SLOWLY BECOMING BED BOUND AFTER THIS PROCEDURE. AND THEY ARE CONCERNED WOULD LIKE TO SPEAK WITH DR SANTIAGO. PER PATIENT CAREGIVER LARISSA [phone] IS TO BE UPDATED ON CONDITION
[2017-02-18] MEDS ORDERED: NA PHOS,M-B/NA PHOS,DI-BA 1 EA ENEMA RC PRN (19:00)
--- NOTE | 2017-02-18 19:30 | NUR ---
RN INITIAL NOTES, RECEIVED PATIENT IN BED, AWAKE ALERT AND ORIENTED, ABLE TO VERBALIZED UNDERSTANDING AND CONCERNS, BREATHING EVEN AND UNLABORED, NO S/S OF ANY DISCOMFORT, SOB OR ACUTE DISTRESS NOTED AT THIS TIME. F/C IN PLACE DRAINING BY GRAVITY YELLOW COLOR URINE, IV FLUIDS INFUSING WELL AND PATIENT TOLERATED WELL, IV SITE INTACT AND PATENT NO S/S OF ANY ABNORMALITY OR INFILTRATION NOTED AT THIS TIME, BED LOCKED AND LOWEST POSITION, CALL LIGHT W/ REACH, SITTER AT BEDSIDE, WILL CONTINUE TO MONITOR CLOSELY.
[2017-02-18 20:00] VITALS: BP 118/74
[2017-02-18] MEDS: TAMSULOSIN 0.4 MG CAP.SR.24H PO SCH (21:27)
[2017-02-18] MEDS: TRAZODONE 50 MG TABLET PO SCH (21:28)
[2017-02-18] MEDS: ZOLPIDEM TARTRATE 5 MG TABLET PO PRN (22:34)
--- NOTE | 2017-02-18 23:30 | NUR ---
RN NOTES, NOTED PATIENT WITH NO BM, ENDORSED BY PRIOR SHIFT THAT PATIENT HASNT HAVE A BM AND WITH NEW ORDER FOR ENEMA QDAILY PRN FOR CONSTIPATION, INFORMED PATIENT ABOUT THE NEW ORDER FOR ENEMA, AND HE STATES THAT HE WANTED TO WAIT FOR THE NIGHT TO SEE IF HAVE A BOWEL MOVEMENT SINCE HE RECEIVED ALREADY MOM, AND IF OTHERWISE WANT TO HAVE THE ENEMA IN THE MORNING. EXPLAIN RISK AND BENEFITS, STILL REFUSED AND WANT ENEMA IN THE MORNING. WILL CONTINUE TO MONITOR CLOSELY, AND ENCOURAGE FLUIDS
[2017-02-19] VITALS (7 sets, daily range): BP systolic 90–114; BP diastolic 51–75
[2017-02-19] MEDS: IPRATROPIUM NEB FS 0.5 MG/2.5 ML AMPUL.NEB NEB SCH ×4 (02:09→20:04)
[2017-02-19] MEDS: HYDROCODONE/APAP 5/325MG 1 EACH TABLET PO PRN ×3 (02:36→20:58)
--- NOTE | 2017-02-19 06:45 | NUR ---
RN CLOSING NOTES, PATIENT IN BED ALERT AND ORIENTED, BREATHING EVEN AND UNLABORED, NO S/S OF ANY ACUTE DISTRESS AT THIS TIME, IVF INFUSING WELL AND PATIENT TOLERATED WELL, SITE INTACT, NO S/S OF ABNORMALITY OR INFILTRATION NOTED AT THIS TIME, F/C DRAINING YELLOW URINE, PATENTCY INTACT, BED LOCKED AND IN LOWEST POSITION, CALL LIGHT W/I REACH, ALL NEEDS PROVIDED AND ANTICIPATED WILL CONTINUE ENDORSE CONTINUITY OF CARE TO NEXT SHIFT NURSE.
[2017-02-19 06:49] LABS: BASOPHILS % (AUTO) 0.2 % (0.0-2.0); EOSINOPHILS % (AUTO) 0.4 % (0.0-6.0); HEMATOCRIT 39 % (39-51); HEMOGLOBIN 13.1 g/dL (13.5-17.5); LYMPHOCYTES # (AUTO) 2.3 /CMM (0.8-4.8); LYMPHOCYTES % (AUTO) 25.6 % (20.0-44.0); MEAN CORPUSCULAR HEMOGLOBIN 32 PG (26.0-33.0); MEAN CORPUSCULAR HGB CONC 34 g/dl (31.0-36.0); MEAN CORPUSCULAR VOLUME 94 fL (80-96); MONOCYTES # (AUTO) 0.7 /CMM (0.1-1.30); MONOCYTES % (AUTO) 7.8 % (2.0-12.0); NEUTROPHILS # (AUTO) 5.8 /CMM (1.8-8.9); PLATELET COUNT (AUTO) 306 /CMM (150-450); RDW COEFFICIENT OF VARIATION 13.6 (11.5-15.0); RED BLOOD CELL COUNT(AUTO) 4.17 MIL/uL (4.5-6.0); WHITE BLOOD COUNT (AUTO) 8.9 K/uL (4.3-11.0)
[2017-02-19 07:15] LABS: CALCIUM, SERUM 8.3 mg/dL (8.5-10.1); CREATININE 0.5 mg/dL (0.6-1.3); PHOSPHORUS 2.7 mg/dL (2.5-4.9); POTASSIUM 3.8 mmol/L (3.5-5.1)
--- NOTE | 2017-02-19 07:23 | NUR ---
MS RN OPENING RECEIVED PATIENT A/OX3 DENIES SOB, DIFFICULTY BREATHING STATES PAIN CONTROLLED WITH PRN MEDICATIONS. PATIENT STATES HE IS MAD BECAUSE HE KEPT BEING INTERRUPTED LAST NIGHT AND WANTS TO REST NOW. ALL NEEDS IN REACH. BED LOWERED AND LOCKED, RAILS UPX3 WITH BED ALARM ON AND SITTER AT SIDE. PATIENT AWARE WE HAVE AN ORDER TO GIVE ENEMA AND STATES HE DOES NOT WANT IT NOW..AWARE OF COMPLICATIONS FROM NOT HAVING A BM NOW FOR 4 DAYS NOW. PER CAREGIVER PATIENT USUAL BM'S ARE BETWEEN Q3-4 DAYS.
[2017-02-19] MEDS: ALBUTEROL FS 2.5 MG/3 ML VIAL.NEB NEB SCH ×3 (07:24→20:04)
[2017-02-19] MEDS: BUDESONIDE RESPULE INH 0.25 MG/2 ML AMPUL.NEB NEB SCH ×2 (07:45→20:04)
[2017-02-19] MEDS: NICOTINE PATCH (21MG) 21 MG PATCH.TD24 TD SCH (08:36)
[2017-02-19] MEDS: LIDOCAINE 5% (PATCH) 1 EA PATCH TP SCH (08:36)
[2017-02-19] MEDS: DULOXETINE HCL 30 MG CAPSULE.DR PO SCH ×2 (08:37→16:09)
[2017-02-19] MEDS: HYDROGEL DRESSING 90 GM TUBE TP SCH (08:37)
[2017-02-19] MEDS: Z GUARD REMEDY 2 OZ OINT TP PRN (08:37)
[2017-02-19] MEDS: clonazePAM 1 MG TABLET PO PRN ×2 (08:37→20:59)
[2017-02-19] MEDS: DOCUSATE SODIUM 100 MG CAPSULE PO SCH ×2 (08:37→16:09)
[2017-02-19] MEDS: GABAPENTIN 300 MG CAPSULE PO SCH ×2 (08:37→16:09)
[2017-02-19] MEDS: predniSONE 20 MG TABLET PO SCH (08:37)
[2017-02-19] MEDS: BOOST PLUS FOOD-CHOCLATE 237 ML BOX PO SCH ×2 (08:38→16:52)
[2017-02-19] MEDS: ENOXAPARIN SODIUM 30 MG/0.3 ML DISP.SYRIN SQ SCH (08:46)
[2017-02-19] MEDS: MECLIZINE HCL 12.5 MG TABLET PO PRN (11:56)
[2017-02-19] MEDS: LEVOFLOXACIN (500MG) 500 MG TABLET PO SCH (11:56)
[2017-02-19] MEDS: IV NS 0.9% 1,000 ML IV PRN (12:14)
[2017-02-19] MEDS: ONDANSETRON HCL/PF 4 MG/2 ML VIAL IVP PRN (14:49)
[2017-02-19] MEDS: RIVAROXABAN 10 MG TABLET PO SCH (16:10)
[2017-02-19] MEDS: ALBUTEROL FS 2.5 MG/3 ML VIAL.NEB NEB PRN (17:30)
--- NOTE | 2017-02-19 18:17 | NUR ---
MS RN CLOSING PATIENT STABLE NO COMPLICATIONS NOTED. ALL DUE MEDS GIVEN AND ALL NEEDS MET. PATIENT BED LOWERED AND LOCKED, RAILS UPX3 FOR SAFETY, ALL NEEDS IN REACH. SITTER AT SIDE. REMINDED PATIENT AGAIN OF NOT REPOSITIONING SELF TO SACRUM AND RIGHT ELBOW CARE ENDORSED TO RN FOR [place]. KLEVER AWARE OF PATIENT AND CAREGIVER REQUEST TO GET ANNA OF DR TINAJERO OFFICE AND SHE IS IN CONTACT WITH THEM.
--- NOTE | 2017-02-19 20:00 | NUR ---
RN NOTES RECEIVED PATIENT AWAKE IN BED WITH CAREGIVER AT BEDSIDE. NO RESPIRATORY DISTRESS OR SHORTNESS OF BREATH. BREATHING EVEN AND UNLABORED. ON 02 AT 1LPM VIA NASAL CANNULA TOLERATING WELL. COYLE CATH PATENT AND INTACT DRAINING CLEAR YELLOW WITH NO FOUL ODOR URINE. WITH COMPLAINT OF GENERALIZED PAIN. ALERT AND ORIENTED. VERBALLY ABLE TO COMMUNICATE NEEDS. VITAL SIGNS WNL. WILL CONTINUE TO MONITOR. KEPT CLEAN AND DRY.
[2017-02-19] MEDS: TRAZODONE 50 MG TABLET PO SCH (21:14)
[2017-02-19] MEDS: TAMSULOSIN 0.4 MG CAP.SR.24H PO SCH (21:14)
[2017-02-20] MEDS: IV NS 0.9% 1,000 ML IV PRN ×2 (00:55→13:32)
[2017-02-20] MEDS: IPRATROPIUM NEB FS 0.5 MG/2.5 ML AMPUL.NEB NEB SCH ×4 (02:07→20:12)
[2017-02-20 04:00] VITALS: BP 95/53
[2017-02-20] MEDS: ALBUTEROL FS 2.5 MG/3 ML VIAL.NEB NEB PRN (06:17)
--- NOTE | 2017-02-20 06:46 | NUR ---
RN CLOSING NOTES PATIENT IN BED, SLEPT MOSTLY DURING THE NIGHT. NO DISTRESS NOTED. NO SIGNIFICANT CHANGE OF CONDITION. VITAL SIGNS WNL. WILL ENDORSE TO AM SHIFT FOR CONTINUITY OF CARE.
--- NOTE | 2017-02-20 07:00 | NUR ---
MS RN OPENING NOTES RECVD REPORT FROM NOC RN. PT SLEEPING EASY TO AROUSE. SITTER AT BEDSIDE FOR DISRUPTIVE BEHAVIORAL PATTERN. 2LNC O2 SATS 98% NON LABORED RESP. LAC AC 18G INFUSING NS @75ML/HR. COYLE DRAINING ADEQUATE YELLOW URINE. SACRAL AND ELBOW WOUND DRSG CDI. BED IN LOW LOCKED POSITION. CALL LIGHT IN REACH. WILL CONT TO MONITOR CLOSELY.
--- NOTE | 2017-02-20 07:05 | NUR ---
MS RN OPENING NOTE RECVD REPORT FROM ANTONIO LION. PT CONFUSED. NON LABORED RESP. REUBEN MIDLINE PATENT AND INTACT RUNNING NS @60ML/HR. HEAD 02/16 SHOWS LEFT FRONTAL HEMMORRAGE. FAMILY DISCUSSIONS REGARDING SURGERY V. MEDICAL TX. BILAT MITTENS TO PREVENT LINE PULLING AND SKIN BREAKDOWN FROM SCRATCHING SELF. PT HAS PPM AND IS ON CARDIZEM, KEPPRA, DECADRON, DEPAKOTE. RESTING CALMLY AT PRESENT. BED IN LOW LOCKED POSITION. CALL LIGHT IN REACH. WILL CONT TO MONITOR CLOSELY. Addendum: 02/20/17 at 1712 by YE WIGGINS RN ENTERED IN ERROR
[2017-02-20] MEDS: BUDESONIDE RESPULE INH 0.25 MG/2 ML AMPUL.NEB NEB SCH ×2 (07:30→20:13)
[2017-02-20 08:00] VITALS: BP 128/77
[2017-02-20] MEDS: ALBUTEROL FS 2.5 MG/3 ML VIAL.NEB NEB SCH ×3 (08:27→20:12)
[2017-02-20] MEDS: ENOXAPARIN SODIUM 30 MG/0.3 ML DISP.SYRIN SQ SCH (08:48)
[2017-02-20] MEDS: GABAPENTIN 300 MG CAPSULE PO SCH ×2 (08:48→16:16)
[2017-02-20] MEDS: DULOXETINE HCL 30 MG CAPSULE.DR PO SCH ×2 (08:49→16:16)
[2017-02-20] MEDS: predniSONE 20 MG TABLET PO SCH (08:49)
[2017-02-20] MEDS: HYDROCODONE/APAP 5/325MG 1 EACH TABLET PO PRN ×4 (08:49→23:03)
[2017-02-20] MEDS: LEVOFLOXACIN (500MG) 500 MG TABLET PO SCH (08:50)
[2017-02-20] MEDS: DOCUSATE SODIUM 100 MG CAPSULE PO SCH ×2 (08:50→14:25)
[2017-02-20] MEDS: LIDOCAINE 5% (PATCH) 1 EA PATCH TP SCH (08:52)
[2017-02-20] MEDS: NICOTINE PATCH (21MG) 21 MG PATCH.TD24 TD SCH (08:52)
[2017-02-20] MEDS: HYDROGEL DRESSING 90 GM TUBE TP SCH (08:53)
[2017-02-20] MEDS: BOOST PLUS FOOD-CHOCLATE 237 ML BOX PO SCH ×2 (08:53→16:18)
[2017-02-20 09:26] VITALS: BP 128/77
[2017-02-20] MEDS: clonazePAM 1 MG TABLET PO PRN (09:56)
[2017-02-20] MEDS: ONDANSETRON HCL/PF 4 MG/2 ML VIAL IVP PRN ×2 (13:25→20:23)
[2017-02-20 15:31] VITALS: BP 128/77
[2017-02-20 16:00] VITALS: BP 116/72
[2017-02-20] MEDS: RIVAROXABAN 10 MG TABLET PO SCH (16:17)
--- NOTE | 2017-02-20 19:30 | NUR ---
RN OPENING NOTE RECEIVED REPORT FROM AM RN. PT IS AWAKE, ALERT, ORIENTED X 2. SITTER AT BEDSIDE FOR DISRUPTIVE BEHAVIORAL PATTERN. 2LNC O2 SATS 98% NON LABORED RESP. LAC AC 18G INFUSING NS @75ML/HR. COYLE DRAINING ADEQUATE YELLOW URINE. . BED IN LOW LOCKED POSITION. CALL LIGHT IN REACH. WILL CONT TO MONITOR CLOSELY
[2017-02-20 20:00] VITALS: BP 127/76
[2017-02-20] MEDS: TAMSULOSIN 0.4 MG CAP.SR.24H PO SCH (22:07)
[2017-02-20] MEDS: TRAZODONE 50 MG TABLET PO SCH (22:07)
[2017-02-21] MEDS: IPRATROPIUM NEB FS 0.5 MG/2.5 ML AMPUL.NEB NEB SCH ×4 (02:01→20:17)
[2017-02-21] MEDS: HYDROCODONE/APAP 5/325MG 1 EACH TABLET PO PRN ×4 (03:20→19:48)
[2017-02-21 04:00] VITALS: BP 125/70
[2017-02-21] MEDS: clonazePAM 1 MG TABLET PO PRN ×2 (04:21→11:41)
--- NOTE | 2017-02-21 07:52 | NUR ---
MS RN NOTES RECEIVED PT ON BED AWAKE A/0 X 3. ON NC 2LPM TOLERATING WELL, NO SIGN OF RESPIRATORY DISTRESS. IV ACCESS ON LAC #18 NO SIGNS OF REDNESS OR PAIN, NS @ 75 CC/HR RUNNING WELL. BED ALARM ON. SIDE RAILS UP. CALL LIGHT WITHIN REACH. WILL CONTINUE TO MONITOR PT CLOSELY.
[2017-02-21 08:00] VITALS: BP 127/72
[2017-02-21] MEDS: BUDESONIDE RESPULE INH 0.25 MG/2 ML AMPUL.NEB NEB SCH ×2 (08:17→20:21)
[2017-02-21] MEDS: ALBUTEROL FS 2.5 MG/3 ML VIAL.NEB NEB SCH ×3 (08:17→20:17)
[2017-02-21] MEDS: BOOST PLUS FOOD-CHOCLATE 237 ML BOX PO SCH ×2 (09:01→17:18)
[2017-02-21] MEDS: GABAPENTIN 300 MG CAPSULE PO SCH ×2 (09:01→16:09)
[2017-02-21] MEDS: NICOTINE PATCH (21MG) 21 MG PATCH.TD24 TD SCH (09:02)
[2017-02-21] MEDS: LIDOCAINE 5% (PATCH) 1 EA PATCH TP SCH (09:02)
[2017-02-21] MEDS: DOCUSATE SODIUM 100 MG CAPSULE PO SCH ×2 (09:02→16:10)
[2017-02-21] MEDS: DULOXETINE HCL 30 MG CAPSULE.DR PO SCH ×2 (09:02→16:07)
[2017-02-21] MEDS: predniSONE 20 MG TABLET PO SCH (09:05)
[2017-02-21] MEDS: HYDROGEL DRESSING 90 GM TUBE TP SCH (09:05)
[2017-02-21] MEDS: IV NS 0.9% 1,000 ML IV PRN (10:28)
[2017-02-21] MEDS: LEVOFLOXACIN (500MG) 500 MG TABLET PO SCH (11:28)
[2017-02-21] MEDS: ONDANSETRON HCL/PF 4 MG/2 ML VIAL IVP PRN ×2 (12:54→18:35)
[2017-02-21] MEDS: ACETAMINOPHEN 325 MG TABLET PO PRN (12:58)
[2017-02-21] MEDS: MECLIZINE HCL 12.5 MG TABLET PO PRN (14:07)
[2017-02-21 16:00] VITALS: BP 129/73
[2017-02-21] MEDS: RIVAROXABAN 10 MG TABLET PO SCH (16:08)
--- NOTE | 2017-02-21 18:09 | NUR ---
MS RN NOTES NO ACUTE CHANGES NOTED DURING THE SHIFT. ON NASAL CANNULA 2L TOLERATING WELL. NO DISTRESS. PT A/O X 4. ON 1 TO 1 SITTER.. IV ACCESS ON LAC #18 NS 75 CC/ HR RUNNING WELL. NO SIGNS OF REDNESS OR INFECTION. HEAD OF BED ELEVATED. PROVIDED COMFORT. SIDE RAILS UP. DUE MEDS GIVEN. CALL LIGHT IS PLACED WITHIN REACH. WILL ENDORSED TO THE PM NURSE.
--- NOTE | 2017-02-21 19:15 | NUR ---
MS RN NOTES RECEIVED REPORT AND PATIENT FROM DAY SHIFT.
[2017-02-21] MEDS: MAG HYDROX/AL HYDROX/SIMETH 30 ML UDC PO PRN (19:48)
[2017-02-21 20:00] VITALS: BP 122/71
[2017-02-21] MEDS: TAMSULOSIN 0.4 MG CAP.SR.24H PO SCH (22:56)
[2017-02-22] MEDS: HYDROCODONE/APAP 5/325MG 1 EACH TABLET PO PRN ×5 (00:04→20:30)
[2017-02-22] MEDS: clonazePAM 1 MG TABLET PO PRN ×3 (00:04→20:29)
[2017-02-22] MEDS: TRAZODONE 50 MG TABLET PO SCH ×2 (00:05→22:00)
[2017-02-22] MEDS: IV NS 0.9% 1,000 ML IV PRN (00:47)
[2017-02-22] MEDS: IPRATROPIUM NEB FS 0.5 MG/2.5 ML AMPUL.NEB NEB SCH ×4 (02:30→19:24)
[2017-02-22 04:00] VITALS: BP 131/74
[2017-02-22 04:32] VITALS: BP 131/75
--- NOTE | 2017-02-22 07:29 | NUR ---
MS RN NOTES RECEIVED PT ON BED ON NC 2L TOLERATING WELL. NO SIGN OF DISTRESS. ALERT ORIENTED X 4. IV ACCESS #18 NO REDNESS OR PAIN. NS @75ML/HR INFUSING WELL. HEAD OF BED ELEVATED. SIDE RAILS UP. CALL LIGHT IS PLACE WITHIN REACH. WILL CONTINUE TO MONITOR PT CLOSELY.
[2017-02-22] MEDS: BUDESONIDE RESPULE INH 0.25 MG/2 ML AMPUL.NEB NEB SCH ×2 (07:38→19:45)
[2017-02-22] MEDS: ALBUTEROL FS 2.5 MG/3 ML VIAL.NEB NEB SCH ×3 (07:38→19:24)
[2017-02-22 08:00] VITALS: BP 135/89
[2017-02-22] MEDS: LIDOCAINE 5% (PATCH) 1 EA PATCH TP SCH (08:11)
[2017-02-22] MEDS: GABAPENTIN 300 MG CAPSULE PO SCH ×2 (08:11→16:05)
[2017-02-22] MEDS: NICOTINE PATCH (21MG) 21 MG PATCH.TD24 TD SCH (08:11)
[2017-02-22] MEDS: predniSONE 20 MG TABLET PO SCH (08:12)
[2017-02-22] MEDS: DULOXETINE HCL 30 MG CAPSULE.DR PO SCH ×2 (08:12→16:05)
[2017-02-22] MEDS: DOCUSATE SODIUM 100 MG CAPSULE PO SCH ×2 (08:13→16:09)
[2017-02-22] MEDS: BOOST PLUS FOOD-CHOCLATE 237 ML BOX PO SCH ×2 (08:13→16:05)
[2017-02-22] MEDS: HYDROGEL DRESSING 90 GM TUBE TP SCH (08:13)
[2017-02-22] MEDS: MECLIZINE HCL 12.5 MG TABLET PO PRN (09:09)
[2017-02-22] MEDS: ONDANSETRON HCL/PF 4 MG/2 ML VIAL IVP PRN ×2 (11:40→17:49)
[2017-02-22] MEDS: LEVOFLOXACIN (500MG) 500 MG TABLET PO SCH (11:40)
[2017-02-22 16:00] VITALS: BP 108/66
[2017-02-22] MEDS: RIVAROXABAN 10 MG TABLET PO SCH (16:06)
[2017-02-22] MEDS: ALBUTEROL FS 2.5 MG/3 ML VIAL.NEB NEB PRN ×2 (17:45→22:27)
[2017-02-22] MEDS: MAG HYDROX/AL HYDROX/SIMETH 30 ML UDC PO PRN (17:49)
--- NOTE | 2017-02-22 18:31 | NUR ---
RN MS NOTES NO ACUTE CHANGES ON PT CONDITION. ON NC 2L TOLERATING WELL. NO SIGN OF DISTRESS. A/O X3. IV ACCESS ON LAC #18 NS 75CC/HR RUNNING WELL. CALL LIGHT IS PLACED WITHIN REACH. DUE MEDS GIVEN. HEAD OF BED ELEVATED. SIDE RAILS UP. WILL ENDORSE PT TO THE PM NURSE.
--- NOTE | 2017-02-22 19:30 | NUR ---
MS RN INITIAL NOTE PT RECEIVED SITTING UP IN BED. A/O X3 AND ABLE TO VERBALIZE NEEDS. ON 2L OF O2 VIA NC AND SATURATING 95%. BREATHING REGULAR, EVEN AND UNLABORED. IV LAC #18 CLEAN AND DRY WITH FLUIDS INFUSING. COYLE CATHETER IN PLACE AND DRAINING YELLOW URINE BY GRAVITY. C/O GENERALIZED PAIN. INFORMED PT NORCO NOT DUE UNTIL AFTER 8PM. PT VERBALIZED UNDERSTANDING AND WILL WAIT UNTIL THEN. HOB ELEVATED. CALL LIGHT WITHIN REACH. WILL CONTINUE TO MONITOR.
[2017-02-22 20:00] VITALS: BP 112/68
[2017-02-22] MEDS: TAMSULOSIN 0.4 MG CAP.SR.24H PO SCH (22:00)
[2017-02-23] MEDS: ZOLPIDEM TARTRATE 5 MG TABLET PO PRN (00:07)
[2017-02-23] MEDS: ONDANSETRON HCL/PF 4 MG/2 ML VIAL IVP PRN ×3 (00:32→19:09)
[2017-02-23] MEDS: HYDROCODONE/APAP 5/325MG 1 EACH TABLET PO PRN ×5 (00:33→20:16)
[2017-02-23] MEDS: IPRATROPIUM NEB FS 0.5 MG/2.5 ML AMPUL.NEB NEB SCH ×4 (01:05→19:30)
[2017-02-23] MEDS: IV NS 0.9% 1,000 ML IV PRN ×2 (02:46→16:15)
[2017-02-23 04:00] VITALS: BP 122/72
--- NOTE | 2017-02-23 07:26 | NUR ---
MS RN CLOSING NOTE PT REMAINED STABLE DURING SHIFT. NO ACUTE DISTRESS NOTED. ALL NEEDS ATTENDED TO PROMPTLY. CALL LIGHT WITHIN REACH AT ALL TIMES. WILL ENDORSE TO NEXT SHIFT FOR CONTINUITY OF CARE.
--- NOTE | 2017-02-23 07:30 | NUR ---
RN MS NOTES PT IN BED, ASLEEP, EASY TO AROUSE, ALERT AND ORIENTED, NO COMPLAINT OF PAIN, NOT IN DISTRESS, CALL LIGHT WITHIN REACH, NEEDS ATTENDED.
[2017-02-23] MEDS: ALBUTEROL FS 2.5 MG/3 ML VIAL.NEB NEB SCH ×3 (07:44→19:30)
[2017-02-23] MEDS: BUDESONIDE RESPULE INH 0.25 MG/2 ML AMPUL.NEB NEB SCH ×2 (07:44→19:34)
[2017-02-23 08:00] VITALS: BP 135/71
[2017-02-23] MEDS: LIDOCAINE 5% (PATCH) 1 EA PATCH TP SCH (08:24)
[2017-02-23] MEDS: predniSONE 20 MG TABLET PO SCH (08:24)
[2017-02-23] MEDS: NICOTINE PATCH (21MG) 21 MG PATCH.TD24 TD SCH (08:24)
[2017-02-23] MEDS: DULOXETINE HCL 30 MG CAPSULE.DR PO SCH ×3 (08:25→16:22)
[2017-02-23] MEDS: GABAPENTIN 300 MG CAPSULE PO SCH ×2 (08:25→16:15)
[2017-02-23] MEDS: DOCUSATE SODIUM 100 MG CAPSULE PO SCH ×2 (09:00→17:00)
[2017-02-23] MEDS: clonazePAM 1 MG TABLET PO PRN ×2 (10:22→21:15)
[2017-02-23] MEDS: LEVOFLOXACIN (500MG) 500 MG TABLET PO SCH (12:32)
[2017-02-23] MEDS: BOOST PLUS FOOD-CHOCLATE 237 ML BOX PO SCH ×3 (12:32→17:00)
[2017-02-23] MEDS: HYDROGEL DRESSING 90 GM TUBE TP SCH (12:33)
--- NOTE | 2017-02-23 13:00 | NUR ---
RN MS NOTES PT IN BED, AWAKE, ALERT AND ORIENTED, NOT IN DISTRESS, PAIN MED GIVEN FOR PAIN MANAGEMENT, PT SEEN BY DR. ESQUIVEL, NEW ORDERS MADE, TOLERATING CURRENT DIET WELL, ASSISTED IN TURNING AND REPOSITIONING, IV FLUIDS INFUSING WELL.
[2017-02-23] MEDS: busPIRone 5 MG TABLET PO SCH ×2 (13:13→16:16)
[2017-02-23 16:00] VITALS: BP 124/76
[2017-02-23] MEDS: RIVAROXABAN 10 MG TABLET PO SCH (16:21)
--- NOTE | 2017-02-23 18:26 | NUR ---
RN MS NOTES PT IN BED, AWAKE, ALERT AND ORIENTED, PM CARE PROVIDED, WOUND CARE PROVIDED, IV FLUIDS INFUSING WELL, ASSISTED WITH MEALS, CALL LIGHT PLACED WITHIN EASY REACH, ALL NEEDS ATTENDED.
[2017-02-23] MEDS: MAG HYDROX/AL HYDROX/SIMETH 30 ML UDC PO PRN (20:15)
--- NOTE | 2017-02-23 20:15 | NUR ---
MS RN NOTE PT IN BED AWAKE. A/O X 3, NO SOB NOTED. C/O PAIN 6-7/10 DULL ACHING LOWER BACK AND ALSO C/O HEART BURN. NORCO 1 TAB PO GIVEN FOR PAIN AND MAALOX PO GIVEN FOR HEART BURN. DENIES NAUSEA AT THIS TIME. IVF NS @ 75 ML/HR INFUSING WELL, NO S/S OF INFILTRATION NOTED AT LAC # 18 G. WOUND DRESSINGS ON C/D/I. NOTED COYLE BAG IS LEAKING, CHANGED THE BAG WITH NEW ONE URINE IS CLEAR, YELLOWISH COLOR. SIDE RAILS UP X 3 AND CALL LIGHT WITHIN REACH. REPOSITION HIM FOR SKIN MANAGEMENT. VSS CONTINUE TO MONITOR HIM.
--- NOTE | 2017-02-23 21:15 | NUR ---
MS 1 RN NOTE PAIN SUBSIDED 04/12. ALSO HEART BURN SUBSIDED. PT IS ANXIOUS AT THIS TIME KLONOPIN 1 MG PO GIVEN. CONTINUE TO MONITOR HIM.
[2017-02-23] MEDS: TRAZODONE 50 MG TABLET PO SCH (21:59)
[2017-02-23] MEDS: TAMSULOSIN 0.4 MG CAP.SR.24H PO SCH (21:59)
--- NOTE | 2017-02-23 22:15 | NUR ---
MS 1 RN NOTE ANXIETY SUBSIDED PT FALL ASLEEP, NO DISTRESS OR DISCOMFORT NOTED.
[2017-02-23] MEDS: ALBUTEROL FS 2.5 MG/3 ML VIAL.NEB NEB PRN (23:15)
--- NOTE | 2017-02-24 01:55 | NUR ---
MS 1 RN NOTE PT WOKE UP AND ASKING FOR SLEEPING MED. AMBIEN 5 MG PO GIVEN.
[2017-02-24] MEDS: ZOLPIDEM TARTRATE 5 MG TABLET PO PRN (01:58)
--- NOTE | 2017-02-24 02:55 | NUR ---
MS 1 RN NOTE PT FALL ASLEEP, NO DISTRESS NOTED. IVF INFUSING WELL. NO S/S OF INFILTRATION NOTED.
[2017-02-24] MEDS: ALBUTEROL FS 2.5 MG/3 ML VIAL.NEB NEB PRN ×3 (03:04→23:09)
[2017-02-24] MEDS: IPRATROPIUM NEB FS 0.5 MG/2.5 ML AMPUL.NEB NEB SCH ×4 (03:04→20:08)
[2017-02-24] MEDS: HYDROCODONE/APAP 5/325MG 1 EACH TABLET PO PRN ×4 (04:48→23:18)
[2017-02-24] MEDS: IV NS 0.9% 1,000 ML IV PRN (06:57)
--- NOTE | 2017-02-24 07:05 | NUR ---
MS 1 RN NOTE PT IN BED AWAKE. NO DISTRESS OR DISCOMFORT NOTED. DENIES PAIN. IVF INFUSING WELL, NO S/S OF INFILTRATION NOTED. SIDE RAILS UP X 3 AND CALL LIGHT WITHIN REACH. ENDORSE TO DAY SHIFT NURSE FOR CONTINUE TO CARE.
--- NOTE | 2017-02-24 07:30 | NUR ---
RN OPENING NOTES RECEIVED PATIENT IN BED RESTING, A/O X3 AND ABLE TO VERBALIZE NEEDS. ON 2LPM O2 VIA NC, SATURATING 96%. BREATHING REGULAR, EVEN AND UNLABORED. NO ACUTE DISTRESS, NO SOB NOTED. IV LAC #18 CLEAN AND DRY WITH FLUIDS INFUSING. COYLE CATHETER IN PLACE AND DRAINING YELLOW URINE BY GRAVITY. BED IN LOW, LOCKED POSITION, HOB ELEVATED, CALL LIGHT WITHIN REACH. WILL CONTINUE TO MONITOR ACCORDINGLY.
[2017-02-24 08:00] VITALS: BP 125/68
[2017-02-24] MEDS: ALBUTEROL FS 2.5 MG/3 ML VIAL.NEB NEB SCH ×3 (08:03→20:08)
[2017-02-24] MEDS: BUDESONIDE RESPULE INH 0.25 MG/2 ML AMPUL.NEB NEB SCH ×2 (08:04→20:08)
[2017-02-24] MEDS: BOOST PLUS FOOD-CHOCLATE 237 ML BOX PO SCH ×2 (08:48→16:12)
[2017-02-24] MEDS: LIDOCAINE 5% (PATCH) 1 EA PATCH TP SCH (08:50)
[2017-02-24] MEDS: NICOTINE PATCH (21MG) 21 MG PATCH.TD24 TD SCH (08:50)
[2017-02-24] MEDS: GABAPENTIN 300 MG CAPSULE PO SCH ×2 (08:51→16:13)
[2017-02-24] MEDS: busPIRone 5 MG TABLET PO SCH ×3 (08:51→16:14)
[2017-02-24] MEDS: predniSONE 20 MG TABLET PO SCH (08:52)
[2017-02-24] MEDS: DOCUSATE SODIUM 100 MG CAPSULE PO SCH ×2 (08:52→16:13)
[2017-02-24] MEDS: HYDROGEL DRESSING 90 GM TUBE TP SCH (08:55)
[2017-02-24] MEDS: DULOXETINE HCL 30 MG CAPSULE.DR PO SCH ×3 (08:55→16:13)
[2017-02-24] MEDS: LEVOFLOXACIN (500MG) 500 MG TABLET PO SCH (13:39)
[2017-02-24] MEDS: clonazePAM 1 MG TABLET PO PRN ×2 (14:38→21:15)
[2017-02-24 16:00] VITALS: BP 124/76
[2017-02-24] MEDS: RIVAROXABAN 10 MG TABLET PO SCH (16:15)
--- NOTE | 2017-02-24 18:00 | NUR ---
RN NOTES PERIPHERAL IV NOT PATENT. DISCONTINUED IV SITE, APPLIED PRESSURE, NO BLEEDING, NO COMPLICATIONS. TRIED TO REINSERT A NEW IV ACCESS BUT PATIENT REFUSED. PER PATIENT, HE IS HARDSTICK. LAUNCHMAN MADE AWARE. PER LAUNCHMAN, PATIENT WILL HAVE A MIDLINE INSERTION LATER TONIGHT.
[2017-02-24] MEDS: MAG HYDROX/AL HYDROX/SIMETH 30 ML UDC PO PRN (18:57)
--- NOTE | 2017-02-24 19:30 | NUR ---
RN CLOSING NOTES PATIENT IN BED RESTING. NO SIGNIFICANT CHANGE IN PATIENT'S CONDITION. NO ACUTE DISTRESS, NO SOB NOTED. ALL NEEDS ATTENDED AND PROVIDED. TURN AND REPOSITION EVERY 2 HRS NEEDED. WOUND CARE DONE. KEPT PATIENT SAFE AND COMFORTABLE. BED IN LOW POSITION, LOCKED, SIDERAILS UPX2, HOB ELEVATED. CALL LIGHT IN REACH. ENDORSED TO NIGHT RN FOR [place].
--- NOTE | 2017-02-24 19:38 | NUR ---
RN OPENING NOTE RN OPENING NOTES RECEIVED PATIENT IN BED AWAKE, A/O X3 AND ABLE TO VERBALIZE NEEDS. ON 2LPM O2 VIA NC. BREATHING REGULAR, EVEN AND UNLABORED. NO ACUTE DISTRESS, NO SOB NOTED. PATIENT DOES NOT HAVE IV SITE, AM NURSE ENDORSE THAT MIDLINE WILL BE PLACED TONIGHT, OFFERED TO INSERT PERIPHERAL LINE MEANWHILE, PATIENT REFUSED . COYLE CATHETER IN PLACE AND DRAINING YELLOW URINE BY GRAVITY. BED IN LOW, LOCKED POSITION, HOB ELEVATED, CALL LIGHT WITHIN REACH. WILL CONTINUE TO MONITOR
[2017-02-24 20:00] VITALS: BP 146/86
--- NOTE | 2017-02-24 21:13 | NUR ---
RN NOTE SPOKE TO DOCTOR GEOVANNI,ANSELMO Clements MD, DECLINED ORDER FOR MID LINE
[2017-02-24] MEDS: TRAZODONE 50 MG TABLET PO SCH (22:25)
[2017-02-24] MEDS: TAMSULOSIN 0.4 MG CAP.SR.24H PO SCH (22:25)
--- NOTE | 2017-02-24 22:35 | NUR ---
rn note charge nurse Beulah inserted peripheral IV on the left wrist, patient tolerated procedure well, flushing well
[2017-02-24] MEDS: ONDANSETRON HCL/PF 4 MG/2 ML VIAL IVP PRN (23:18)
[2017-02-25] MEDS: ZOLPIDEM TARTRATE 5 MG TABLET PO PRN (00:24)
[2017-02-25] MEDS: IPRATROPIUM NEB FS 0.5 MG/2.5 ML AMPUL.NEB NEB SCH ×5 (01:51→19:29)
[2017-02-25 04:00] VITALS: BP 96/56
--- NOTE | 2017-02-25 07:24 | NUR ---
RN NOTES RECEIVED PT IN STABLE CONDITION, A&0X3, ON 2L NC SATING WELL NO SOB OR DISTRESS NOTED. COYLE DRAINING TO GRAVITY YELLOW IN COLOR. L WRIST 22G IV SITE INTACT NO IVF. BED LOCKED AND IN LOWEST POSITION, CALL LIGHT WITHIN REACH, SIDE RAILS UPX3, WILL CONT TO ELI.
[2017-02-25] MEDS: ALBUTEROL FS 2.5 MG/3 ML VIAL.NEB NEB SCH ×4 (07:27→19:29)
--- NOTE | 2017-02-25 07:46 | NUR ---
RN CLOSING NOTE PATIENT IN BED ASLEEP. NO SIGNIFICANT CHANGE IN PATIENT'S CONDITION. NO ACUTE DISTRESS, NO SOB NOTED. ALL NEEDS ATTENDED AND PROVIDED. TURN AND REPOSITION EVERY 2 HRS . WOUND CARE DONE. KEPT PATIENT SAFE AND COMFORTABLE. BED IN LOW POSITION, LOCKED, SIDE RAILS UP TIMES 2, HOB ELEVATED. CALL LIGHT WITHIN REACH. ENDORSED TO MORNING RN FOR [place]
[2017-02-25] MEDS: BUDESONIDE RESPULE INH 0.25 MG/2 ML AMPUL.NEB NEB SCH ×2 (07:53→19:29)
[2017-02-25 08:00] VITALS: BP 132/77
[2017-02-25] MEDS: BOOST PLUS FOOD-CHOCLATE 237 ML BOX PO SCH ×2 (08:16→16:38)
[2017-02-25] MEDS: HYDROCODONE/APAP 5/325MG 1 EACH TABLET PO PRN ×4 (08:16→21:34)
[2017-02-25] MEDS: LIDOCAINE 5% (PATCH) 1 EA PATCH TP SCH (08:16)
[2017-02-25] MEDS: NICOTINE PATCH (21MG) 21 MG PATCH.TD24 TD SCH (08:17)
[2017-02-25] MEDS: predniSONE 20 MG TABLET PO SCH (08:17)
[2017-02-25] MEDS: DOCUSATE SODIUM 100 MG CAPSULE PO SCH ×2 (08:17→16:37)
[2017-02-25] MEDS: busPIRone 5 MG TABLET PO SCH ×3 (08:18→16:35)
[2017-02-25] MEDS: GABAPENTIN 300 MG CAPSULE PO SCH ×2 (08:18→16:35)
[2017-02-25] MEDS: DULOXETINE HCL 30 MG CAPSULE.DR PO SCH ×3 (08:18→16:37)
[2017-02-25] MEDS: HYDROGEL DRESSING 90 GM TUBE TP SCH (08:19)
[2017-02-25] MEDS: MAG HYDROX/AL HYDROX/SIMETH 30 ML UDC PO PRN ×3 (09:44→20:28)
[2017-02-25] MEDS: ONDANSETRON HCL/PF 4 MG/2 ML VIAL IVP PRN ×2 (09:45→20:28)
[2017-02-25] MEDS: clonazePAM 1 MG TABLET PO PRN ×2 (10:50→22:57)
[2017-02-25] MEDS: LEVOFLOXACIN (500MG) 500 MG TABLET PO SCH (12:28)
[2017-02-25] MEDS: ACETAMINOPHEN 325 MG TABLET PO PRN (14:01)
[2017-02-25 16:00] VITALS: BP 112/70
[2017-02-25] MEDS: RIVAROXABAN 10 MG TABLET PO SCH (16:38)
--- NOTE | 2017-02-25 18:39 | NUR ---
RN NOTES PT REMAINED IN STABLE CONDITION THROUGHOUT THE SHIFT. NO SIGNIFICANT CHANGES, ALL NEEDS MET. NO DISTRESS OR SOB NOTED. WILL ENDORSE TO ONCOMING SHIFT.
--- NOTE | 2017-02-25 19:32 | NUR ---
RN OPENING NOTE RECEIVED PATIENT IN THE BED ALERT/ORIENTED X 3, NO RESPIRATORY DISTRESS NOTED, BED IN THE LOW POSITION, SIDE RAILS UP X 2, 22 GAUGE LEFT WRIST IV SITE IS INTACT, NO REDNESS NOTED, WILL CONTINUE TO MONITOR
[2017-02-25 20:00] VITALS: BP 153/89
[2017-02-25] MEDS: TAMSULOSIN 0.4 MG CAP.SR.24H PO SCH (22:56)
[2017-02-25] MEDS: TRAZODONE 50 MG TABLET PO SCH (22:57)
[2017-02-26] MEDS: ZOLPIDEM TARTRATE 5 MG TABLET PO PRN (00:17)
[2017-02-26] MEDS ORDERED: MAG HYDROX/AL HYDROX/SIMETH 30 ML UDC PO ONE (01:00)
[2017-02-26] MEDS: ALBUTEROL FS 2.5 MG/3 ML VIAL.NEB NEB PRN (01:31)
[2017-02-26] MEDS: IPRATROPIUM NEB FS 0.5 MG/2.5 ML AMPUL.NEB NEB SCH ×4 (01:31→19:35)
[2017-02-26] MEDS: HYDROCODONE/APAP 5/325MG 1 EACH TABLET PO PRN ×4 (02:29→21:09)
[2017-02-26] MEDS: ONDANSETRON HCL/PF 4 MG/2 ML VIAL IVP PRN ×4 (02:31→22:51)
[2017-02-26 04:00] VITALS: BP 114/65
[2017-02-26] MEDS: MAGNESIUM HYDROXIDE 30 ML UDC PO PRN (06:30)
--- NOTE | 2017-02-26 06:52 | NUR ---
RN CLOSING NOTE PATIENT IN BED AWAKE. NO SIGNIFICANT CHANGE IN PATIENT'S CONDITION. NO ACUTE DISTRESS, NO SOB NOTED, SO2 97% ALL NEEDS ATTENDED AND PROVIDED. TURN AND REPOSITION EVERY 2 HRS . WOUND CARE DONE. KEPT PATIENT SAFE AND COMFORTABLE. BED IN LOWEST POSITION, SIDE RAILS UP TIMES 2, CALL LIGHT WITHIN REACH. WILL ENDORSE CARE TO A MORNING NURSE
[2017-02-26 08:00] VITALS: BP 126/85
[2017-02-26] MEDS: ALBUTEROL FS 2.5 MG/3 ML VIAL.NEB NEB SCH ×3 (08:15→19:35)
[2017-02-26] MEDS: BUDESONIDE RESPULE INH 0.25 MG/2 ML AMPUL.NEB NEB SCH ×2 (08:15→19:35)
[2017-02-26] MEDS: NICOTINE PATCH (21MG) 21 MG PATCH.TD24 TD SCH (09:08)
[2017-02-26] MEDS: BOOST PLUS FOOD-CHOCLATE 237 ML BOX PO SCH ×2 (09:08→17:19)
[2017-02-26] MEDS: LIDOCAINE 5% (PATCH) 1 EA PATCH TP SCH (09:08)
[2017-02-26] MEDS: DULOXETINE HCL 30 MG CAPSULE.DR PO SCH ×3 (09:09→16:32)
[2017-02-26] MEDS: DOCUSATE SODIUM 100 MG CAPSULE PO SCH ×2 (09:09→16:31)
[2017-02-26] MEDS: predniSONE 20 MG TABLET PO SCH (09:09)
[2017-02-26] MEDS: busPIRone 5 MG TABLET PO SCH ×3 (09:10→16:31)
[2017-02-26] MEDS: HYDROGEL DRESSING 90 GM TUBE TP SCH (09:10)
[2017-02-26] MEDS: GABAPENTIN 300 MG CAPSULE PO SCH ×2 (09:10→16:31)
[2017-02-26] MEDS: MAG HYDROX/AL HYDROX/SIMETH 30 ML UDC PO PRN ×3 (09:20→22:51)
--- NOTE | 2017-02-26 09:35 | NUR ---
MS RN NOTES RECEIVED PT ON BED A/O X 4. ON NC 2LPM TOLERATING WELL. NO SIGN OF RESPIRATORY DISTRESS. IV ACCESS ON LEFT WRIST G22 NO SIGN OF REDNESS OR PAIN. HEAD OF BED ELEVATED. SIDE RAILS UP. CALL LIGHT WITHIN REACH. WILL CONTINUE TO MONITOR PT CLOSELY.
[2017-02-26] MEDS: clonazePAM 1 MG TABLET PO PRN ×2 (10:00→21:08)
[2017-02-26] MEDS: LEVOFLOXACIN (500MG) 500 MG TABLET PO SCH (13:47)
[2017-02-26 16:00] VITALS: BP 132/82
[2017-02-26] MEDS: RIVAROXABAN 10 MG TABLET PO SCH (16:33)
--- NOTE | 2017-02-26 18:24 | NUR ---
MS RN NOTES NO ACUTE CHANGE OF PT CONDITION NOTED DURING THE SHIFT. ON NASAL CANNULA 2LPM, NO TOLERATING WELL NO SIGN OF RESPIRATORY DISTRESS. IV ACCESS 22G IN LEFT WRIST NO SIGN OF REDNESS OF INFECTION OR PAIN. HEAD OF BED ELEVATED. DUE MEDS GIVEN. PROVIDED COMFORT. SIDE RAILS UP. CALL LIGHT IS PLACED WITHIN REACH. WILL ENDORSED TO THE PM NURSE.
--- NOTE | 2017-02-26 19:10 | NUR ---
MS/RN NOTES RECEIVED PT. SITTING UP IN BED. PT. IS AWAKE, ALERT AND ORIENTED X4. BREATHING EVEN AND UNLABORED ON 2LPM O2 VIA NC. NO SOB, RESPIRATORY DISTRESS OR COMPLAINTS OF PAIN NOTED AT THIS TIME. PT. WITH LEFT WRIST 22 GAUGE SALINE LOCK PRESENT, PATENT AND INTACT. PT. WITH COYLE CATHETER PRESENT, PATENT AND INTACT DRAINING CLEAR YELLOW URINE. BED LOCKED AND IN LOWEST POSITION, SIDE RAILS UP X2, BED ALARM ON, CALL LIGHT WITHIN REACH, WILL CONTINUE TO MONITOR.
[2017-02-26 20:00] VITALS: BP 139/83
[2017-02-26] MEDS: TAMSULOSIN 0.4 MG CAP.SR.24H PO SCH (22:25)
[2017-02-26] MEDS: TRAZODONE 50 MG TABLET PO SCH (22:25)
[2017-02-27] MEDS: ZOLPIDEM TARTRATE 5 MG TABLET PO PRN (00:28)
[2017-02-27] MEDS: ALBUTEROL FS 2.5 MG/3 ML VIAL.NEB NEB PRN ×2 (01:37→11:54)
[2017-02-27] MEDS: IPRATROPIUM NEB FS 0.5 MG/2.5 ML AMPUL.NEB NEB SCH ×3 (01:37→13:58)
[2017-02-27] MEDS: HYDROCODONE/APAP 5/325MG 1 EACH TABLET PO PRN ×4 (01:43→16:29)
--- NOTE | 2017-02-27 07:00 | NUR ---
MS/RN NOTES PT. IS LYING IN BED RESTING. BREATHING EVEN AND UNLABORED ON 2LPM O2 VIA NC. NO SOB, RESPIRATORY DISTRESS OR COMPLAINTS OF PAIN NOTED AT THIS TIME. PT. WITH LEFT WRIST 22 GAUGE SALINE LOCK PRESENT, PATENT AND INTACT. PT. WITH COYLE CATHETER PRESENT, PATENT AND INTACT DRAINING CLEAR YELLOW URINE. ALL PT. NEEDS MET. ALL DUE MEDICATIONS GIVEN. BED LOCKED AND IN LOWEST POSITION, SIDE RAILS UP X2, BED ALARM ON, CALL LIGHT WITHIN REACH, WILL ENDORSE TO DAYSHIFT NURSE FOR CONTINUITY OF CARE.
[2017-02-27] MEDS: BUDESONIDE RESPULE INH 0.25 MG/2 ML AMPUL.NEB NEB SCH (07:17)
[2017-02-27] MEDS: ALBUTEROL FS 2.5 MG/3 ML VIAL.NEB NEB SCH ×2 (07:33→13:58)
--- NOTE | 2017-02-27 07:50 | NUR ---
RN NOTES PATIENT ALERT AND ORIENTED X3, NO RESPIRATORY DISTRESS NOTED, DENIES PAIN AT THIS TIME, NEEDS ATTENDED, KEPT PATIENT COMFORTABLE, CALL LIGHT WITHIN REACH, WILL CONTINUE TO MONITOR.
[2017-02-27 08:00] VITALS: BP 137/74
[2017-02-27] MEDS: BOOST PLUS FOOD-CHOCLATE 237 ML BOX PO SCH ×2 (08:41→16:30)
[2017-02-27] MEDS: busPIRone 5 MG TABLET PO SCH ×3 (08:42→16:29)
[2017-02-27] MEDS: GABAPENTIN 300 MG CAPSULE PO SCH ×2 (08:42→16:28)
[2017-02-27] MEDS: predniSONE 20 MG TABLET PO SCH (08:42)
[2017-02-27] MEDS: DULOXETINE HCL 30 MG CAPSULE.DR PO SCH ×3 (08:42→16:28)
[2017-02-27] MEDS: NICOTINE PATCH (21MG) 21 MG PATCH.TD24 TD SCH (08:42)
[2017-02-27] MEDS: MAG HYDROX/AL HYDROX/SIMETH 30 ML UDC PO PRN (08:43)
[2017-02-27] MEDS: LIDOCAINE 5% (PATCH) 1 EA PATCH TP SCH (08:43)
[2017-02-27] MEDS: ONDANSETRON HCL/PF 4 MG/2 ML VIAL IVP PRN (08:43)
[2017-02-27] MEDS: HYDROGEL DRESSING 90 GM TUBE TP SCH (08:43)
[2017-02-27] MEDS: clonazePAM 1 MG TABLET PO PRN ×2 (08:44→16:29)
[2017-02-27] MEDS: DOCUSATE SODIUM 100 MG CAPSULE PO SCH ×2 (08:46→16:29)
[2017-02-27] MEDS: LEVOFLOXACIN (500MG) 500 MG TABLET PO SCH (12:07)
[2017-02-27] MEDS: RIVAROXABAN 10 MG TABLET PO SCH (16:28)
--- NOTE | 2017-02-27 16:30 | NUR ---
RN NOTES F/C REMOVED PER DR. DAMIAN'S ORDER. PATIENT TOLERATED PROCEDURE.
--- NOTE | 2017-02-27 17:15 | NUR ---
RN NOTES INFORMED PATIENT'S STAPLER MACHINE, PATIENT'S COYLE CATHETER WAS JUST RECENTLY REMOVED, PATIENT HAS NO URGE TO URINATE AT THIS TIME, AND HAS THE DIAPER ON. PER PATIENT HE HAS NO PROBLEM WITH URINATION EVEN BEFORE ADMISSION. INSTRUCTED PATIENT AND STAPLER MACHINE TO MONITOR URINE OUTPUT. IF PATIENT HAS NO URINE OUTPUT TONIGHT, TO CALL PRIMARY DOCTOR TOMORROW.
--- NOTE | 2017-02-27 17:29 | NUR ---
CLINICAL ASST PATIENT AND PATIENT ACCOUNT ANALYST LARISSA, RECEIVED DISCHARGE INSTRUCTIONS AND BOTH VERBALIZED UNDERSTANDING, PATIENT PREFERRED PATIENT ACCOUNT ANALYST TO SIGN DISCHARGE PAPERWORKS. SKIN ASSESSMENT COMPLETED, PHOTOS TAKEN. ALL DUE MEDICATIONS GIVEN ORDERED. PERIPHERAL IV REMOVED, NO BLEEDING. WOUND TREATMENT RENDERED. ALL NEEDS ATTENDED. BELONGINGS RECONCILED AND COMPLETE. LEFT THE FACILITY ACCOMPANIED BY LARISSA, VIA PRIVATE CAR. Addendum: 02/27/17 at 1732 by HEIDI PANDA RN ADDENDUM: LEFT THE FACILITY IN NO RESPIRATORY DISTRESS.
== END 2017-02-27 17:26 | disposition home or self-care (01) | DRG 951 ==
LOC: ER 06:13 → TELE 10:40 → TELE1 11:26 → MEDSG1 02-16 12:45
PROVIDERS: ADMIT Internal Medicine; ATTEND Internal Medicine
PROC: 0JB70ZZ Excision of Back Subcutaneous Tissue and Fascia, Open Approach (ICD-10-PCS; principal; 2017-02-18)
PROC: 0KB90ZZ Excision of Right Lower Arm and Wrist Muscle, Open Approach (ICD-10-PCS; principal; 2017-02-18)
DX: T40.601A Poisoning by unspecified narcotics, accidental (unintentional), initial encounter (principal); J96.21 Acute and chronic respiratory failure with hypoxia; N17.0 Acute kidney failure with tubular necrosis; G92 Toxic encephalopathy; L89.014 Pressure ulcer of right elbow, stage 4; E22.2 Syndrome of inappropriate secretion of antidiuretic hormone; F33.2 Major depressive disorder, recurrent severe without psychotic features; D69.2 Other nonthrombocytopenic purpura; L89.153 Pressure ulcer of sacral region, stage 3; J44.1 Chronic obstructive pulmonary disease with (acute) exacerbation; F17.210 Nicotine dependence, cigarettes, uncomplicated; F41.9 Anxiety disorder, unspecified; Z86.718 Personal history of other venous thrombosis and embolism; Z79.01 Long term (current) use of anticoagulants; K21.9 Gastro-esophageal reflux disease without esophagitis; I10 Essential (primary) hypertension; G89.29 Other chronic pain; I25.2 Old myocardial infarction; E83.42 Hypomagnesemia; E78.5 Hyperlipidemia, unspecified; F11.20 Opioid dependence, uncomplicated; L89.520 Pressure ulcer of left ankle, unstageable; L89.510 Pressure ulcer of right ankle, unstageable; L89.621 Pressure ulcer of left heel, stage 1; L89.611 Pressure ulcer of right heel, stage 1; L98.8 Other specified disorders of the skin and subcutaneous tissue; Z91.19 Patient's noncompliance with other medical treatment and regimen; L53.8 Other specified erythematous conditions; D64.9 Anemia, unspecified; F41.0 Panic disorder [episodic paroxysmal anxiety]; Z99.81 Dependence on supplemental oxygen; F19.90 Other psychoactive substance use, unspecified, uncomplicated; Y92.009 Unspecified place in unspecified non-institutional (private) residence as the place of occurrence of the external cause
CPT/HCPCS: 36415; 71010-TC; 80048-TC; 80053-TC; 80061-TC; 81000-TC; 83605-TC; 83735-TC; 83935-TC; 84100-TC; 84134-TC; 84300-TC; 84443-TC; 84484-TC; 84550-TC; 85025-TC; 85610-TC; 87040-TC; 87081-TC; 87086-TC; 87400; 94762-TC; 94799-TC; 97110-TC; 97116-TC; 97530-TC; A4216; A4606; A6248; A6253; A6402; A6403; J0456; J1650; J1956; J2310; J2405; J2930; J3475; J3490; J7030; J7040; J7060; J8597; Z7610